=== PATIENT | female | born 1970 | race Caucasian/White ===

== ENCOUNTER 2018-01-29 22:35 | Inpatient (IN) | payer OTHER ==
[2018-01-29] MEDS ORDERED: NORMAL SALINE 1000 ML 1,000 ML IV ONE ×2 (22:42→23:28)
--- NOTE | 2018-01-29 22:49 | ER Document Report ---
ED General - General Stated Complaint: ALTERTED MENTAL STATUS Time Seen by Provider: 01/29/18 22:41 Notes: Patient is a 47-year-old female who is brought in by paramedics due to altered mental status. It apparently began tonight. Paramedics were called by the . Early in the evening she started to feel more somnolent. waited to see if she is improving then apparently her breathing started to worsen therefore called the embolus. When Paramedics arrived her systolic blood pressure was in the 80s. This started a fluid bolus. She is tachycardic. She has a history of diabetes. She is also on antidepressant medications. She is also on antihypertensive medications. The patient herself will only answer a few questions yes or no. She is obviously altered and does not answer most questions appropriately. I asked if she has pain she will say "no". I asked her if she took more of her medications and she supposed to she says "no". I cannot get any further history from her at this time. Patient's current medications are metformin, lisinopril, hydrochlorothiazide, Savella, duloxetine, Neurontin, and Nucynta. TRAVEL OUTSIDE OF THE [place] IN LAST 30 DAYS: No - Related Data Allergies/Adverse Reactions: acetaminophen [From NyQuil] Allergy (Verified 05/08/15 21:11) heart races dextromethorphan HBr [From NyQuil] Allergy (Verified 05/08/15 21:11) heart races doxylamine [From NyQuil] Allergy (Verified 05/08/15 21:11) heart races Penicillins Allergy (Verified 05/08/15 21:11) Hives pseudoephedrine HCl [From NyQuil] Allergy (Verified 05/08/15 21:11) heart races Past Medical History - Social History Smoking Status: Unknown if Ever Smoked Frequency of alcohol use: unknown Drug Abuse: Other - uknown Family History: Other - unknown - Past Medical History Cardiac Medical History: Reports: Hx Hypertension Endocrine Medical History: Reports: Hx Diabetes Mellitus Type 2 - borderline Renal/ Medical History: Reports: Hx Ovarian Cysts - pcos Musculoskeletal Medical History: Reports Hx Musculoskeletal Deformity - bursitits Psychiatric Medical History: Reports: Hx Anxiety, Hx Attention Deficit Hyperactivity Disorder, Hx Depression Past Surgical History: Reports: Hx Appendectomy, Hx Gynecologic Surgery - right fallopian tube, Hx Orthopedic Surgery - left hip, Hx Tonsillectomy - and adenoids - Immunizations Immunizations up to date: Yes Hx Diphtheria, Pertussis, Tetanus Vaccination: Yes Review of Systems - Review of Systems -: Yes ROS unobtainable due to patient's medical condition Physical Exam - Vital signs Vitals: Resp BP 14 128/91 H 01/29/18 22:46 01/29/18 22:46 - Notes Notes: General Appearance: Well nourished, she is somnolent but awake. She will answer hardly any questions. Is obvious and confused. She is on well- appearing. Vitals: reviewed, See vital signs table. Head: no swelling or tenderness to the head Eyes: PERRL, EOMI, Conjuctiva clear Mouth: No decreasd moisture Throat: No tonsillar inflammation, No airway obstruction, No lymphadenopathy Neck: Supple, no neck tenderness, No thyromegaly Lungs: No wheezing, No rales, No rhonci, No accessory muscle use, good air exchange bilaterally. Heart: Cardiac rate, Regular rythm, No murmur, no rub Abdomen: Normal BS, soft, No rigidity, No abdominal tenderness, No guarding, no rebound, no abdominal masses, no organomegaly Extremities: , good pulses in all extremities, no swelling or tenderness in the extremities, 1+ bilateral lower extremity edema. Skin: warm, dry, appropriate color, no rash Neuro: Patient will occasionally mumble yes or no. She most questions are asked her she does not answer. She does move all 4 extremities on her own. She does continue to have a tremor in her lower extremities. She is awake but somnolent. Full neuro exam is difficult to obtain due to patient's altered mental status and difficulty following instructions at this time. Course - Re-evaluation Re-evalutation: 01/29/18 23:02 Patient's is arrived. He tells me that around 4 PM she is feeling a bit tired today both took a nap. He woke up around 8:30pm and noticed that she was very confused and altered and was not responding appropriately to him and that is when he called the ambulance. He said she has not had fevers or recent infections. He says that he himself is on chronic pain medicine use is a disabled . He says she does manage his meds. He says she has never taken his opiate medicines in the past. She is on Nucynta for pain control and he says that she has been out for a week but is been doing okay despite that. Does not suspect that she took any of his medicines. She says he says that she does not drink or do drugs. He is unsure what could be causing her symptoms today. 01/29/18 23:27 Patient is so much more awake and alert. She now admits to taking some of her 's morphine and OxyContin. She still has some hypertension. She still is tachycardic with little bit of a tremor. Suspect there is possibly she could have taken something else as well being that the opiate overdose does not explain her tachycardia and tremor that she has. 01/30/18 02:22 She continued to have recurrent bouts of hypotension despite multiple fluid boluses. Therefore placed central line in the left femoral vein. Did start patient dopamine. Blood pressures improved. I did speak with the hospitalist, Dr. Jacobo about admission. He agrees to accept the patient for admission but request that we switch dopamine to Jaydon-Synephrine because of her tachycardia. She does have acute renal failure. She does have metabolic acidosis. I strongly suspect that there is more to the store than just an opiate overdose. I suspect she may have overdosed on some of her other medications. When asked about overdosing on the medications the patient's will not really talk to me and becomes somewhat upset and does not want to answer any further questions. He does not make sense that this is an opiate overdose when she has tachycardia and has had some tremors. Mental status has become more more lucid since she has been here. I do not suspect infection. She has not had any fever. Her white count is 11.2. Her mental status has improved since she has been here. Her urinalysis only shows small amount of white blood cells. Is not consistent with that of a overt urinary tract infection. Chest x-ray does not show evidence of pneumonia. At this time we will continue supportive care. Patient will be admitted to the hospital. The line was placed in the femoral vein because when I ultrasound and looked at her jugular veins she did not have collapsible jugular veins and they were of a small diameter. Dictation of this chart was performed using voice recognition software; therefore, there may be some unintended grammatical errors. 01/30/18 02:23 01/30/18 02:25 - Vital Signs Vital signs: Temp Pulse Resp BP Pulse Ox 120 H 11 L 100/41 L 92 01/30/18 03:00 01/30/18 04:12 01/30/18 04:12 01/30/18 04:12 - Laboratory Result Diagrams: 01/29/18 22:52 01/29/18 22:52 Laboratory results interpreted by me: 01/29/18 01/29/18 01/29/18 22:21 22:52 22:52 WBC 11.2 H RBC 3.62 L Hgb 11.5 L Hct 34.5 L Seg Neutrophils % 86.2 H Lymphocytes % 8.5 L Absolute Neutrophils 9.7 H VBG pH VBG HCO3 Potassium 5.4 H Carbon Dioxide 16 L BUN 69 H Creatinine 3.42 H Est GFR ( Amer) 17 L Est GFR (Non-Af Amer) 14 L Glucose 111 H Calcium 8.1 L Creatine Kinase Urine Protein 30 H Urine Blood LARGE H Urine Urobilinogen 2.0 H Ur Leukocyte Esterase TRACE H Salicylates < 1.0 L Acetaminophen < 10 L 01/29/18 01/29/18 22:52 22:52 WBC RBC Hgb Hct Seg Neutrophils % Lymphocytes % Absolute Neutrophils VBG pH 7.12 L* VBG HCO3 17.4 L Potassium Carbon Dioxide BUN Creatinine Est GFR ( Amer) Est GFR (Non-Af Amer) Glucose Calcium Creatine Kinase 639 H Urine Protein Urine Blood Urine Urobilinogen Ur Leukocyte Esterase Salicylates Acetaminophen Procedures - Central Line Left Femoral Consent obtained: Yes Central line pre-insertion: Sterile PPE donned, Chloraprep applied, Sterile drapes applied Central line lumen type: Triple Anesthetic type: 1% Lidocaine mL's of anesthesia: 4 Ultrasound guided: Yes CM at insertion site: 20 Line secured with sutures: Yes Central line post-insertion: Blood return from lumens, Biopatch applied, Sutured , Sterile dressing applied Number of attempts: 1 Complications: No Critical Care Note - Critical Care Note Total time excluding time spent on procedures (mins): 70 Comments: Critical care time for this patient not including time spent on procedures approximately 70 minutes due to frequent re-evaluations and management for hypotension, hypoxemia, and altered mental status.
[2018-01-29 23:21] LABS: VENOUS BLOOD BASE EXCESS -11.7 mmol/L; VENOUS BLOOD HCO3 17.4 mmol/L (20-32); VENOUS BLOOD PCO2 54.2 mmHg (35-63); VENOUS BLOOD PH 7.12 (7.30-7.42)
--- NOTE | 2018-01-29 23:23 | EKG REPORT ---
SEVERITY:- OTHERWISE NORMAL ECG - SINUS TACHYCARDIA : Confirmed by: Gwen Rodriguez MD 29-Jan-2018 23:23:16
[2018-01-29 23:24] LABS: ABSOLUTE MONOCYTES (AUTO) 0.6 10^3/uL (0.1-1.4); ABSOLUTE NEUT (AUTO) 9.7 10^3/uL (1.7-8.2); BASOPHILS % (AUTO) 0.2 % (0-2); EOSINOPHILS % (AUTO) 0.1 % (0-6); HEMATOCRIT 34.5 % (36.0-47.0); HEMOGLOBIN 11.5 g/dL (12.0-15.5); LYMPHOCYTES % (AUTO) 8.5 % (13-45); MEAN CORPUSCULAR HEMOGLOBIN 31.9 pg (27.0-33.4); MEAN CORPUSCULAR HGB CONC 33.4 g/dL (32.0-36.0); MEAN CORPUSCULAR VOLUME 96 fl (80-97); PLATELET COUNT 268 10^3/uL (150-450); RED BLOOD COUNT 3.62 10^6/uL (3.72-5.28); RED CELL DISTRIBUTION WIDTH 13.9 % (11.5-14.0); SEGMENTED NEUTROPHILS % (AUTO) 86.2 % (42-78); TOTAL CELLS COUNTED % (AUTO) 100 %; WHITE BLOOD COUNT 11.2 10^3/uL (4.0-10.5)
[2018-01-29 23:29] LABS: INTERNATIONAL RATION (INR) 1.05; PROTHROMBIN TIME 14.2 SEC (11.4-15.4)
[2018-01-29] MEDS ORDERED: NALOXONE HCL INJ/PF 0.4 MG/1 ML SDV IV ONE (23:32)
[2018-01-29 23:33] LABS: AMORPHOUS SEDIMENT,URINE TRACE /HPF; APPEARANCE,URINE CLOUDY; BILIRUBIN,URINE NEGATIVE (NEGATIVE); COLOR,URINE YELLOW; GLUCOSE, URINE NEGATIVE (NEGATIVE); KETONES,URINE NEGATIVE (NEGATIVE); LEUKOCYTE ESTERASE,URINE TRACE (NEGATIVE); NITRITE,URINE NEGATIVE (NEGATIVE); PROTEIN,URINE 30 mg/dL (NEGATIVE); URINE SPECIFIC GRAVITY 1.019
[2018-01-29 23:34] LABS: ALANINE AMINOTRANSFERASE 39 U/L (9-52); ALBUMIN 3.6 g/dL (3.5-5.0); ALKALINE PHOSPHATASE 67 U/L (38-126); ANION GAP 16 (5-19); ASPARTATE AMINO TRANSFERASE 22 U/L (14-36); BILIRUBIN,DIRECT 0.3 mg/dL (0.0-0.4); BILIRUBIN,TOTAL 0.3 mg/dL (0.2-1.3); BLOOD UREA NITROGEN 69 mg/dL (7-20); CALCIUM 8.1 mg/dL (8.4-10.2); CARBON DIOXIDE 16 mmol/L (22-30); CHLORIDE 107 mmol/L (98-107); GLUCOSE 111 mg/dL (75-110); POTASSIUM 5.4 mmol/L (3.6-5.0); SODIUM 138.6 mmol/L (137-145); TOTAL PROTEIN 6.3 g/dL (6.3-8.2)
[2018-01-29 23:37] LABS: ACETAMINOPHEN < 10 ug/mL (10-30); ALCOHOL < 10 mg/dL (NONE DETECTED); SALICYLATE < 1.0 mg/dL (2.0-20.0)
[2018-01-29 23:45] LABS: URINE AMPHETAMINES SCREEN NEGATIVE; URINE BARBITURATES SCREEN NEGATIVE; URINE BENZODIAZEPINES SCREEN NEGATIVE; URINE COCAINE SCREEN NEGATIVE; URINE MARIJUANA (THC) SCREEN NEGATIVE; URINE METHADONE SCREEN NEGATIVE; URINE PHENCYCLIDINE SCREEN NEGATIVE
[2018-01-29] MEDS ORDERED: RINGERS SOLUTION,LACTATED 1,000 ML IV ONE (23:56)
--- NOTE | 2018-01-30 00:46 | RADIOLOGY REPORT (SQ) ---
EXAM DESCRIPTION: XR CHEST 1 VIEW COMPLETED DATE/TME: 01/29/2018 22:41 CLINICAL HISTORY: altered mental status COMPARISON: 06/13/2013 FINDINGS: Single frontal view of the chest. The cardiomediastinal silhouette has normal size and contour. No consolidation, pneumothorax, or pleural effusion. No displaced rib fractures identified. Leads overlie the chest. Low lung volumes. Upper abdominal soft tissues are unremarkable. IMPRESSION: 1. No acute pulmonary process identified.
--- NOTE | 2018-01-30 00:53 | RADIOLOGY REPORT (SQ) ---
EXAM DESCRIPTION: CT HEAD WITHOUT IV CONTRAST COMPLETED DATE/TME: 01/29/2018 22:41 CLINICAL HISTORY: altered mental status COMPARISON: None available TECHNIQUE: Axial CT of the head obtained from the skull apex to the skull base without contrast. FINDINGS: No acute intracranial hemorrhage identified. No mass, mass effect, shift of the midline, abnormal extra-axial fluid collection or CT evidence of acute ischemic change identified. The ventricular system is unremarkable. No acute abnormalities of the supratentorial white matter, basal ganglia, cerebellum, or brainstem. The visualized paranasal sinuses and the mastoids are clear. No skull fracture identified. Visualized orbits and globes are unremarkable. DLP:1017.17 mGy-cm IMPRESSION: 1. No acute intracranial abnormality identified. This exam was performed according to our departmental dose-optimization program, which includes automated exposure control, adjustment of the mA and/or kV according to patient size and/or use of iterative reconstruction technique.
[2018-01-30] MEDS ORDERED: DOPAMINE HCL/DEXTROSE 5%-WATER 800 MG/250 ML RTUINJ IV PRN (01:19)
[2018-01-30] MEDS ORDERED: IPRATROPIUM/ALBUTEROL 0.5-2.5 MG/3 ML AMPUL NEB PRN ×2 (02:22)
[2018-01-30] MEDS ORDERED: MAG HYDROX/AL HYDROX/SIMETH SUSP 30 ML UDCUP PO PRN (02:22)
[2018-01-30] MEDS ORDERED: NORMAL SALINE 1000 ML 1,000 ML IV SCH (02:30)
[2018-01-30] MEDS ORDERED: PHENYLEPHRINE HCL INJ/PF 10 MG/1 ML SDV ONE ×2 (03:29→04:55)
[2018-01-30] MEDS: DEXTROSE 5%-WATER 250 ML with PHENYLEPHRINE HCL 40 MG IV PRN ×4 (03:46→06:34)
[2018-01-30 05:13] LABS: ARTERIAL BLOOD O2 SATURATION 94.2 % (94-98); ARTERIAL BLOOD PCO2 49.8 mmHg (35-45); ARTERIAL BLOOD PO2 97.5 mmHg (80-100); ARTERIAL BLOOD TOTAL CO2 15.5 mmol/L (21-25)
[2018-01-30 05:15] LABS: ARTERIAL BLOOD FIO2 4L
[2018-01-30 05:17] LABS: ARTERIAL BLOOD PH 7.07 (7.35-7.45)
[2018-01-30] MEDS ORDERED: SODIUM BICARBONATE 8.4% INJ 50 MEQ/50 ML DISP.SYRIN ONE ×2 (05:20→12:58)
[2018-01-30] MEDS ORDERED: NALOXONE HCL INJ 2 MG/2 ML DISP.SYRIN ONE (05:26)
[2018-01-30] MEDS ORDERED: NALOXONE HCL INJ/PF 0.4 MG/1 ML SDV IV PRN (05:36)
[2018-01-30 05:37] LABS: ALANINE AMINOTRANSFERASE 47 U/L (9-52); ALBUMIN 3.4 g/dL (3.5-5.0); ALKALINE PHOSPHATASE 67 U/L (38-126); ANION GAP 12 (5-19); ASPARTATE AMINO TRANSFERASE 55 U/L (14-36); BILIRUBIN,DIRECT 0.4 mg/dL (0.0-0.4); BILIRUBIN,TOTAL 0.4 mg/dL (0.2-1.3); BLOOD UREA NITROGEN 63 mg/dL (7-20); CALCIUM 7.6 mg/dL (8.4-10.2); CARBON DIOXIDE 17 mmol/L (22-30); CHLORIDE 111 mmol/L (98-107); GLUCOSE 141 mg/dL (75-110); POTASSIUM 4.9 mmol/L (3.6-5.0); SODIUM 140.3 mmol/L (137-145)
[2018-01-30 05:43] LABS: CREATINE KINASE MB 54.4 ng/mL (<4.55)
[2018-01-30 05:48] LABS: TROPONIN I 0.194 ng/mL
--- NOTE | 2018-01-30 05:55 | PDOC H&P ---
History of Present Illness Admission Date/PCP: 01/30/18 03:25 Patient complains of: Altered mental status History of Present Illness: MARK LING is a 47 year old female with a past medical history of depression , hypertension, morbid obesity, diabetes and chronic pain. Patient presents with several hours of excessive drowsiness, EMS finds her apneic with systolic blood pressure 80 she is brought to the emergency room for evaluation. She is started on dopamine and an IV fluid challenge persistent hypotension. Her labs reveal acute renal failure, metabolic acidosis and rhabdomyolysis. She receives a trial of Narcan with minimal improvement she is referred to the hospitalist for admission. She is unable to provide history though her at bedside states she has had access to her own medication in addition to his which include morphine and OxyContin. She has no history of suicide ideation. Past Medical History Cardiac Medical History: Reports: Hypertension Endocrine Medical History: Reports: Diabetes Mellitus Type 2 - borderline Psychiatric Medical History: Reports: Attention Deficit Hyperactivity Disorder, Depression Past Surgical History Past Surgical History: Reports: Appendectomy, Orthopedic Surgery - left hip, Tonsillectomy - and adenoids Social History Information Source: Relative, Emergency Med Personnel, [facility] Records Lives with: Spouse/Significant other Smoking Status: Current Every Day Smoker Cigarettes Packs Per Day: 1 Frequency of Alcohol Use: None Hx Recreational Drug Use: No Drugs: None Hx Prescription Drug Abuse: No - Advance Directive Resuscitation Status: Full Code Family History Family History: Other - Unobtainable unknown Parental Family History Reviewed: No - Unobtainable Children Family History Reviewed: No - Unobtainable Sibling(s) Family History Reviewed.: No - Unobtainable Medication/Allergy Home Medications: Oxycodone HCl/Acetaminophen [Percocet 5-325 mg Tablet] 1 - 2 tab PO Q4H PRN #15 tablet 05/18/13 Duloxetine HCl 60 mg PO BID 01/30/18 Gabapentin [Gabapentin] 600 mg PO QID PRN 01/30/18 Lisinopril/Hydrochlorothiazide [Lisinopril-Hctz 20-25 mg Tab] 20 - 25 mg PO DAILY 01/30/18 Metformin HCl [Metformin HCl] 500 mg PO DAILY 01/30/18 Milnacipran HCl [Savella] 12.5 mg PO BID 01/30/18 Tapentadol HCl [Nucynta] 75 mg PO TID PRN 01/30/18 Allergies/Adverse Reactions: acetaminophen [From NyQuil] Allergy (Verified 05/08/15 21:11) heart races dextromethorphan HBr [From NyQuil] Allergy (Verified 05/08/15 21:11) heart races doxylamine [From NyQuil] Allergy (Verified 05/08/15 21:11) heart races Penicillins Allergy (Verified 05/08/15 21:11) Hives pseudoephedrine HCl [From NyQuil] Allergy (Verified 05/08/15 21:11) heart races Review of Systems ROS unobtainable: Due to mental status Physical Exam Vital Signs: Temp Pulse Resp BP Pulse Ox 99.1 F 110 H 14 129/66 H 97 01/30/18 05:02 01/30/18 05:02 01/30/18 05:02 01/30/18 05:02 01/30/18 05:02 Intake & Output 01/28/18 01/29/18 01/30/18 11:59 11:59 11:59 Weight 143.9 kg General appearance: PRESENT: disheveled, morbidly obese, severe distress Head exam: PRESENT: atraumatic, normocephalic Eye exam: PRESENT: conjunctiva pink, EOMI, PERRLA. ABSENT: scleral icterus Ear exam: PRESENT: normal external ear exam Mouth exam: PRESENT: moist, tongue midline Neck exam: ABSENT: carotid bruit, JVD, lymphadenopathy, thyromegaly Respiratory exam: PRESENT: crackles, decreased breath sounds Cardiovascular exam: PRESENT: tachycardia. ABSENT: diastolic murmur, rubs, systolic murmur Pulses: PRESENT: normal dorsalis pedis pul Vascular exam: PRESENT: normal capillary refill GI/Abdominal exam: PRESENT: normal bowel sounds, soft. ABSENT: distended, guarding, mass, organolmegaly, rebound, tenderness Rectal exam: PRESENT: deferred Extremities exam: PRESENT: +1 edema Neurological exam: PRESENT: altered, CN II-XII grossly intact. ABSENT: awake, oriented to person, oriented to place Psychiatric exam: PRESENT: unusual affect Skin exam: PRESENT: dry, intact, warm. ABSENT: cyanosis, rash Results Laboratory Results: 01/30/18 04:57 01/30/18 01/30/18 04:57 04:57 Carbonic Acid 1.50 H HCO3/H2CO3 Ratio 9:1 ABG pH 7.07 L* ABG pCO2 49.8 H ABG pO2 97.5 ABG HCO3 14.0 L ABG O2 Saturation 94.2 ABG Base Excess -16.0 FiO2 4L Sodium 140.3 Potassium 4.9 Chloride 111 H Carbon Dioxide 17 L Anion Gap 12 BUN 63 H Creatinine 2.83 H Est GFR ( Amer) 22 L Est GFR (Non-Af Amer) 18 L Glucose 141 H Calcium 7.6 L Total Bilirubin 0.4 AST 55 H ALT 47 Alkaline Phosphatase 67 Total Protein 6.0 L Albumin 3.4 L Impressions: Chest X-Ray 01/29/18 22:41 IMPRESSION: 1. No acute pulmonary process identified. Head CT 01/29/18 22:41 IMPRESSION: 1. No acute intracranial abnormality identified. This exam was performed according to our departmental dose-optimization program, which includes automated exposure control, adjustment of the mA and/or kV according to patient size and/or use of iterative reconstruction technique. Assessment & Plan - Diagnosis (1) Opiate overdose Is this a current diagnosis for this admission?: Yes Plan: Complicated by opiate access of Nucynta, OxyContin and morphine. Admitted to the ICU for supportive care, history of depression patient is on IVC papers. Mental health consulted. (2) Acute renal failure Is this a current diagnosis for this admission?: Yes Plan: Secondary to #1, avoid nephrotoxic meds and doses reevaluate chemistry (3) Metabolic acidosis Is this a current diagnosis for this admission?: Yes Plan: Secondary to #1, lactic acid unremarkable. IV fluid challenge, reevaluate ABG, D5W with 3 Amps of bicarb 2 L, reevaluate ABG (4) Hypotension Is this a current diagnosis for this admission?: Yes Plan: Secondary to #1, IV fluid challenge and pressors as needed (5) Morbid obesity Is this a current diagnosis for this admission?: Yes Plan: Morbid obesity will evaluate for metabolic cause with evaluation of thyroid function and dietitian consultation
[2018-01-30] MEDS ORDERED: NALOXONE HCL INJ 2 MG/2 ML DISP.SYRIN IV ONE (06:00)
[2018-01-30] MEDS ORDERED: DEXTROSE 5%-WATER 1000 ML 1,000 ML with SODIUM BICARBONATE 150 MEQ IV ONE ×2 (06:00)
[2018-01-30] MEDS: HEPARIN SOD (PORCINE) 5,000 UNIT/ML 1 ML SYRINGE SUBCUT SCH ×3 (06:36→21:54)
--- NOTE | 2018-01-30 07:19 | EKG REPORT ---
SEVERITY:- ABNORMAL ECG - SINUS TACHYCARDIA LEFT ATRIAL ABNORMALITY : Confirmed by: Gwen Rodriguez MD 30-Jan-2018 07:17:27
[2018-01-30 09:22] LABS: ARTERIAL BLOOD BASE EXCESS -9.7 mmol/L; ARTERIAL BLOOD FIO2 2L; ARTERIAL BLOOD H2CO3 1.43 mmol/L (1.05-1.35); ARTERIAL BLOOD HCO3 18.1 mmol/L (20-26); ARTERIAL BLOOD O2 SATURATION 96.2 % (94-98); ARTERIAL BLOOD PCO2 47.6 mmHg (35-45); ARTERIAL BLOOD PO2 101.4 mmHg (80-100); ARTERIAL BLOOD TOTAL CO2 19.5 mmol/L (21-25)
[2018-01-30] MEDS: DOCUSATE SODIUM 100 MG CAPSULE PO SCH (11:30)
[2018-01-30] MEDS: ASPIRIN 81 MG TABLET, CHEWABLE PO SCH (11:30)
[2018-01-30] MEDS ORDERED: DEXTROSE 5%-WATER 1000 ML 1,000 ML with SODIUM BICARBONATE 150 MEQ IV PRN ×2 (13:04)
[2018-01-30 14:13] LABS: CREATINE KINASE MB 39.4 ng/mL (<4.55); TROPONIN I 0.959 ng/mL
[2018-01-30] MEDS ORDERED: ACETAMINOPHEN 325 MG TABLET ONE (16:05)
[2018-01-30 16:48] LABS: ARTERIAL BLOOD BASE EXCESS -6.5 mmol/L; ARTERIAL BLOOD H2CO3 1.39 mmol/L (1.05-1.35); ARTERIAL BLOOD HCO3 20.4 mmol/L (20-26); ARTERIAL BLOOD PCO2 46.2 mmHg (35-45); ARTERIAL BLOOD PH 7.26 (7.35-7.45); ARTERIAL BLOOD TOTAL CO2 21.8 mmol/L (21-25)
[2018-01-30 16:50] LABS: ARTERIAL BLOOD FIO2 28%
[2018-01-30] MEDS: ACETAMINOPHEN 325 MG TABLET PO PRN (17:13)
[2018-01-30 17:28] LABS: ALANINE AMINOTRANSFERASE 53 U/L (9-52); ALBUMIN 3.2 g/dL (3.5-5.0); ALKALINE PHOSPHATASE 68 U/L (38-126); ANION GAP 10 (5-19); ASPARTATE AMINO TRANSFERASE 60 U/L (14-36); BILIRUBIN,DIRECT 0.2 mg/dL (0.0-0.4); BILIRUBIN,TOTAL 0.3 mg/dL (0.2-1.3); BLOOD UREA NITROGEN 45 mg/dL (7-20); CALCIUM 7.8 mg/dL (8.4-10.2); CARBON DIOXIDE 23 mmol/L (22-30); CHLORIDE 113 mmol/L (98-107); GLUCOSE 133 mg/dL (75-110); POTASSIUM 4.1 mmol/L (3.6-5.0); SODIUM 145.9 mmol/L (137-145); TOTAL PROTEIN 5.8 g/dL (6.3-8.2)
[2018-01-30 17:38] LABS: TROPONIN I 1.36 ng/mL
[2018-01-30 17:39] LABS: CREATINE KINASE 2228 U/L (30-135)
--- NOTE | 2018-01-30 17:41 | Progress Note ---
Provider Note Provider Note: The patient was admitted by my colleague, Dr. Jacobo earlier this morning. The patient was seen and examined by me. She is resting comfortably. I ordered serial troponins. They have been trending upwards without becoming positive. I have also beenfollowing her EKG which is unchanged. I believe that the elevation in troponin is due to her elevated creatinine.
[2018-01-30 20:41] LABS: CREATINE KINASE MB 26.7 ng/mL (<4.55)
[2018-01-30 20:46] LABS: TROPONIN I 1.62 ng/mL
[2018-01-30] MEDS ORDERED: HALOPERIDOL LACTATE INJ 5 MG/1 ML VIAL IV PRN (21:20)
--- NOTE | 2018-01-30 21:47 | EKG REPORT ---
SEVERITY:- ABNORMAL ECG - SINUS TACHYCARDIA PROBABLE LEFT ATRIAL ABNORMALITY NONSPECIFIC T ABNORMALITIES, LATERAL LEADS : Confirmed by: Gwen Rodriguez MD 30-Jan-2018 21:47:19
[2018-01-31] MEDS: ACETAMINOPHEN 325 MG TABLET PO PRN (00:40)
[2018-01-31 05:07] LABS: ARTERIAL BLOOD BASE EXCESS 1.5 mmol/L; ARTERIAL BLOOD H2CO3 1.47 mmol/L (1.05-1.35); ARTERIAL BLOOD HCO3 27.4 mmol/L (20-26); ARTERIAL BLOOD PCO2 48.9 mmHg (35-45); ARTERIAL BLOOD PH 7.37 (7.35-7.45); ARTERIAL BLOOD PO2 95.7 mmHg (80-100); ARTERIAL BLOOD TOTAL CO2 28.9 mmol/L (21-25)
[2018-01-31 05:11] LABS: ABSOLUTE MONOCYTES (AUTO) 0.6 10^3/uL (0.1-1.4); ABSOLUTE NEUT (AUTO) 5.7 10^3/uL (1.7-8.2); BASOPHILS % (AUTO) 0.2 % (0-2); EOSINOPHILS % (AUTO) 0.2 % (0-6); HEMATOCRIT 30.3 % (36.0-47.0); HEMOGLOBIN 10.8 g/dL (12.0-15.5); LYMPHOCYTES % (AUTO) 13.7 % (13-45); MEAN CORPUSCULAR HEMOGLOBIN 33.1 pg (27.0-33.4); MEAN CORPUSCULAR HGB CONC 35.6 g/dL (32.0-36.0); MEAN CORPUSCULAR VOLUME 93 fl (80-97); MONOCYTES % (AUTO) 8.1 % (3-13); PLATELET COUNT 194 10^3/uL (150-450); RED BLOOD COUNT 3.26 10^6/uL (3.72-5.28); RED CELL DISTRIBUTION WIDTH 13.6 % (11.5-14.0); SEGMENTED NEUTROPHILS % (AUTO) 77.8 % (42-78); TOTAL CELLS COUNTED % (AUTO) 100 %; WHITE BLOOD COUNT 7.3 10^3/uL (4.0-10.5)
[2018-01-31 05:19] LABS: ARTERIAL BLOOD FIO2 28%
[2018-01-31] MEDS: HEPARIN SOD (PORCINE) 5,000 UNIT/ML 1 ML SYRINGE SUBCUT SCH ×3 (05:28→21:59)
[2018-01-31 05:41] LABS: ANION GAP 10 (5-19)
[2018-01-31 06:55] LABS: ALANINE AMINOTRANSFERASE 50 U/L (9-52); ALBUMIN 3.2 g/dL (3.5-5.0); ALKALINE PHOSPHATASE 69 U/L (38-126); ASPARTATE AMINO TRANSFERASE 50 U/L (14-36); BILIRUBIN,DIRECT 0.3 mg/dL (0.0-0.4); BILIRUBIN,TOTAL 0.3 mg/dL (0.2-1.3); BLOOD UREA NITROGEN 29 mg/dL (7-20); CALCIUM 8.3 mg/dL (8.4-10.2); CARBON DIOXIDE 29 mmol/L (22-30); CHLORIDE 109 mmol/L (98-107); GLUCOSE 159 mg/dL (75-110); POTASSIUM 3.8 mmol/L (3.6-5.0); SODIUM 147.8 mmol/L (137-145); TOTAL PROTEIN 5.8 g/dL (6.3-8.2)
[2018-01-31] MEDS: ASPIRIN 81 MG TABLET, CHEWABLE PO SCH (10:23)
[2018-01-31] MEDS: DOCUSATE SODIUM 100 MG CAPSULE PO SCH (10:23)
--- NOTE | 2018-01-31 14:47 | PDOC PROGRESS REPORT ---
Subjective Progress Note for:: 01/31/18 Subjective:: The patient is resting comfortably. No new complaints. Reason For Visit: OVERDOSE, HYPOTENSTION, ARF, AMS Physical Exam Vital Signs: Temp Pulse Resp BP Pulse Ox 98.7 F 70 22 H 117/87 H 98 01/31/18 12:00 01/31/18 13:59 01/31/18 12:00 01/31/18 12:00 01/31/18 12:00 Intake & Output 01/30/18 01/31/18 02/01/18 06:59 06:59 06:59 Intake Total 1055 4124 Output Total 405 9379 975 Balance 650 -5255 -975 Weight 143.9 kg 144 kg General appearance: PRESENT: no acute distress, morbidly obese, well-developed Respiratory exam: PRESENT: other - No increased work of breathing.. ABSENT: rales, rhonchi, wheezes Cardiovascular exam: PRESENT: RRR. ABSENT: diastolic murmur, rubs, systolic murmur Pulses: PRESENT: normal femoral pulses, normal dorsalis pedis pul Vascular exam: PRESENT: normal capillary refill GI/Abdominal exam: PRESENT: soft, other - Bowel sounds are distant. I am unable to evaluate the abdomen for organomegaly, masses, or hernias due to the patient' s body habitus.. ABSENT: distended, guarding, rebound, tenderness Rectal exam: PRESENT: deferred Extremities exam: PRESENT: full ROM. ABSENT: calf tenderness, clubbing, pedal edema Musculoskeletal exam: PRESENT: full ROM. ABSENT: deformity, dislocation Neurological exam: PRESENT: CN II-XII grossly intact, other - The patient is resting comfortably and is somnolent.. ABSENT: motor sensory deficit Skin exam: PRESENT: dry, intact, warm. ABSENT: cyanosis, rash Results Laboratory Results: 01/31/18 05:00 01/31/18 05:00 01/30/18 01/30/18 01/31/18 16:00 16:30 05:00 WBC 7.3 RBC 3.26 L Hgb 10.8 L Hct 30.3 L MCV 93 MCH 33.1 MCHC 35.6 RDW 13.6 Plt Count 194 Seg Neutrophils % 77.8 Lymphocytes % 13.7 Monocytes % 8.1 Eosinophils % 0.2 Basophils % 0.2 Absolute Neutrophils 5.7 Absolute Lymphocytes 1.0 Absolute Monocytes 0.6 Absolute Eosinophils 0.0 Absolute Basophils 0.0 Carbonic Acid 1.39 H HCO3/H2CO3 Ratio 14:1 ABG pH 7.26 L ABG pCO2 46.2 H ABG pO2 93.0 ABG HCO3 20.4 ABG O2 Saturation 96.0 ABG Base Excess -6.5 FiO2 28% Sodium 145.9 H Potassium 4.1 Chloride 113 H Carbon Dioxide 23 Anion Gap 10 BUN 45 H Creatinine 1.32 H Est GFR ( Amer) 52 L Est GFR (Non-Af Amer) 43 L Glucose 133 H Lactic Acid Calcium 7.8 L Magnesium 2.2 Total Bilirubin 0.3 AST 60 H ALT 53 H Alkaline Phosphatase 68 Total Protein 5.8 L Albumin 3.2 L 01/31/18 01/31/18 01/31/18 05:00 05:00 05:00 WBC RBC Hgb Hct MCV MCH MCHC RDW Plt Count Seg Neutrophils % Lymphocytes % Monocytes % Eosinophils % Basophils % Absolute Neutrophils Absolute Lymphocytes Absolute Monocytes Absolute Eosinophils Absolute Basophils Carbonic Acid 1.47 H HCO3/H2CO3 Ratio 18:1 ABG pH 7.37 ABG pCO2 48.9 H ABG pO2 95.7 ABG HCO3 27.4 H ABG O2 Saturation 97.0 ABG Base Excess 1.5 FiO2 28% Sodium 147.8 H Potassium 3.8 Chloride 109 H Carbon Dioxide 29 Anion Gap 10 BUN 29 H Creatinine 0.95 Est GFR ( Amer) > 60 Est GFR (Non-Af Amer) > 60 Glucose 159 H Lactic Acid 0.7 Calcium 8.3 L Magnesium Total Bilirubin 0.3 AST 50 H ALT 50 Alkaline Phosphatase 69 Total Protein 5.8 L Albumin 3.2 L 01/30/18 01/30/18 01/30/18 04:57 04:57 13:30 Creatine Kinase 2252 H 2030 H CK-MB (CK-2) 54.40 H Troponin I 0.194 01/30/18 01/30/18 01/30/18 13:30 16:30 16:30 Creatine Kinase 2228 H CK-MB (CK-2) 39.40 H 33.00 H Troponin I 0.959 1.360 01/30/18 01/30/18 20:05 20:05 Creatine Kinase 1544 H CK-MB (CK-2) 26.70 H Troponin I 1.620 Impressions: Chest X-Ray 01/29/18 22:41 IMPRESSION: 1. No acute pulmonary process identified. Head CT 01/29/18 22:41 IMPRESSION: 1. No acute intracranial abnormality identified. This exam was performed according to our departmental dose-optimization program, which includes automated exposure control, adjustment of the mA and/or kV according to patient size and/or use of iterative reconstruction technique. Assessment & Plan - Diagnosis (1) Fever Qualifiers: Fever type: unspecified Qualified Code(s): R50.9 - Fever, unspecified Is this a current diagnosis for this admission?: Yes Plan: Unknown source for fever. Likely atelectasis or aspiration pneumonitis. Cultures are being monitored. (2) Acute renal failure Is this a current diagnosis for this admission?: Yes Plan: Resolved. (3) Hypotension Is this a current diagnosis for this admission?: Yes Plan: Resolved. Off of pressors. Continue IV fluids. (4) Metabolic acidosis Is this a current diagnosis for this admission?: Yes Plan: Resolved. (5) Morbid obesity Is this a current diagnosis for this admission?: Yes Plan: Complicates all cares. (6) Opiate overdose Is this a current diagnosis for this admission?: Yes Plan: The patient denies suicidal intent. She had run out of her own pain medications and apparently had been taking her husbands. It is likely that she inadvertently overdosed. Psychiatry has been consulted to evaluate the patient for suicidal intent. - Time Time Spent with patient: 25-34 minutes Medications reviewed and adjusted accordingly: Yes Anticipated discharge: Home - Plan Summary Plan Summary: Will transfer out of the ICU to the floor.
[2018-02-01] MEDS: HEPARIN SOD (PORCINE) 5,000 UNIT/ML 1 ML SYRINGE SUBCUT SCH ×4 (03:56→23:10)
[2018-02-01] MEDS: ASPIRIN 81 MG TABLET, CHEWABLE PO SCH (09:52)
[2018-02-01] MEDS: DOCUSATE SODIUM 100 MG CAPSULE PO SCH (09:53)
--- NOTE | 2018-02-01 17:06 | PDOC PROGRESS REPORT ---
Subjective Progress Note for:: 02/01/18 Subjective:: The patient is much more awake and alert today. She states that she in no way intended to take an overdose. She does state that she took some of her ' s pain medication which is different in type and dose from what she takes. She states that she ran out of her medication because her was taking her medication. She states that her abuses alcohol as well as other prescription medications and street drugs. Reason For Visit: OVERDOSE, HYPOTENSTION, ARF, AMS Physical Exam Vital Signs: Temp Pulse Resp BP Pulse Ox 98.3 F 78 18 139/76 H 98 02/01/18 15:17 02/01/18 15:17 02/01/18 15:17 02/01/18 15:17 02/01/18 15:17 Intake & Output 01/31/18 02/01/18 02/02/18 06:59 06:59 06:59 Intake Total 4124 Output Total 9379 1375 Balance -5255 -1375 Weight 144 kg 138.3 kg General appearance: PRESENT: no acute distress, cooperative, obese, other - Awake, alert, and oriented x 3. Respiratory exam: PRESENT: other - No increased work of breathing. No wheezes, rales, or rhonchi. No tactile fremitus. Cardiovascular exam: PRESENT: RRR. ABSENT: gallop, rubs, systolic murmur Pulses: PRESENT: normal femoral pulses, normal dorsalis pedis pul GI/Abdominal exam: PRESENT: other - Morbidly obese. I am unable to evaluate the abdomen for organomegaly, masses, or hernias. Bowel sounds are distant. Extremities exam: ABSENT: full ROM, tenderness, +1 edema Neurological exam: PRESENT: alert, altered, awake, oriented to person, oriented to place, oriented to time, oriented to situation, CN II-XII grossly intact. ABSENT: motor sensory deficit Psychiatric exam: PRESENT: appropriate affect, normal mood Skin exam: PRESENT: dry, intact, warm Results Laboratory Results: 01/31/18 05:00 01/31/18 05:00 01/30/18 16:30 Catheterized Urine Urine Culture - Final Escherichia Coli 01/30/18 01/30/18 01/30/18 04:57 04:57 13:30 Creatine Kinase 2252 H 2030 H CK-MB (CK-2) 54.40 H Troponin I 0.194 01/30/18 01/30/18 01/30/18 13:30 16:30 16:30 Creatine Kinase 2228 H CK-MB (CK-2) 39.40 H 33.00 H Troponin I 0.959 1.360 01/30/18 01/30/18 20:05 20:05 Creatine Kinase 1544 H CK-MB (CK-2) 26.70 H Troponin I 1.620 Impressions: Chest X-Ray 01/29/18 22:41 IMPRESSION: 1. No acute pulmonary process identified. Head CT 01/29/18 22:41 IMPRESSION: 1. No acute intracranial abnormality identified. This exam was performed according to our departmental dose-optimization program, which includes automated exposure control, adjustment of the mA and/or kV according to patient size and/or use of iterative reconstruction technique. Assessment & Plan - Diagnosis (1) Fever Qualifiers: Fever type: unspecified Qualified Code(s): R50.9 - Fever, unspecified Is this a current diagnosis for this admission?: Yes Plan: Resolved. (2) Acute renal failure Is this a current diagnosis for this admission?: Yes Plan: Resolved. (3) Hypotension Is this a current diagnosis for this admission?: Yes Plan: Resolved. Off of pressors. Continue IV fluids. (4) Metabolic acidosis Is this a current diagnosis for this admission?: Yes Plan: Resolved. (5) Morbid obesity Is this a current diagnosis for this admission?: Yes Plan: Complicates all cares. (6) Opiate overdose Is this a current diagnosis for this admission?: Yes Plan: The patient denies suicidal intent. She had run out of her own pain medications and apparently had been taking her husbands. It is likely that she inadvertently overdosed. Psychiatry has been consulted to evaluate the patient for suicidal intent. - Time Time Spent with patient: 35 or more minutes Medications reviewed and adjusted accordingly: Yes Anticipated discharge: Home
[2018-02-02] MEDS: ACETAMINOPHEN 325 MG TABLET PO PRN ×3 (00:21→09:43)
[2018-02-02] MEDS: DOCUSATE SODIUM 100 MG CAPSULE PO SCH (04:56)
[2018-02-02 05:07] LABS: ABSOLUTE EOSINOPHILS # (AUTO) 0.1 10^3/uL (0.0-0.6); ABSOLUTE LYMPHOCYTES (AUTO) 1.9 10^3/uL (0.5-4.7); ABSOLUTE MONOCYTES (AUTO) 0.9 10^3/uL (0.1-1.4); ABSOLUTE NEUT (AUTO) 6.8 10^3/uL (1.7-8.2); BASOPHILS % (AUTO) 0.2 % (0-2); EOSINOPHILS % (AUTO) 1.2 % (0-6); HEMATOCRIT 30.1 % (36.0-47.0); HEMOGLOBIN 10.5 g/dL (12.0-15.5); LYMPHOCYTES % (AUTO) 19.2 % (13-45); MEAN CORPUSCULAR HEMOGLOBIN 32.7 pg (27.0-33.4); MEAN CORPUSCULAR VOLUME 94 fl (80-97); MONOCYTES % (AUTO) 9.4 % (3-13); PLATELET COUNT 209 10^3/uL (150-450); RED BLOOD COUNT 3.22 10^6/uL (3.72-5.28); RED CELL DISTRIBUTION WIDTH 13.2 % (11.5-14.0); TOTAL CELLS COUNTED % (AUTO) 100 %; WHITE BLOOD COUNT 9.7 10^3/uL (4.0-10.5)
[2018-02-02 05:29] LABS: ALBUMIN 3.1 g/dL (3.5-5.0); GLUCOSE 110 mg/dL (75-110); POTASSIUM 3.2 mmol/L (3.6-5.0); TOTAL PROTEIN 5.6 g/dL (6.3-8.2)
[2018-02-02 05:31] LABS: ALANINE AMINOTRANSFERASE 33 U/L (9-52); ALKALINE PHOSPHATASE 65 U/L (38-126); ANION GAP 12 (5-19); ASPARTATE AMINO TRANSFERASE 22 U/L (14-36); BILIRUBIN,DIRECT 0.2 mg/dL (0.0-0.4); BILIRUBIN,TOTAL 0.4 mg/dL (0.2-1.3); BLOOD UREA NITROGEN 19 mg/dL (7-20); CALCIUM 8.6 mg/dL (8.4-10.2); CARBON DIOXIDE 30 mmol/L (22-30); CHLORIDE 106 mmol/L (98-107); SODIUM 147.5 mmol/L (137-145)
[2018-02-02] MEDS: ASPIRIN 81 MG TABLET, CHEWABLE PO SCH (09:44)
[2018-02-02] MEDS ORDERED: POTASSIUM CHLORIDE 10 MEQ CAPSULE.ER PO ONE (10:00)
[2018-02-02] MEDS: HEPARIN SOD (PORCINE) 5,000 UNIT/ML 1 ML SYRINGE SUBCUT SCH ×3 (14:45→22:41)
[2018-02-02] MEDS: NUCYNTA PO PRN (22:41)
[2018-02-03] MEDS: NUCYNTA PO PRN ×2 (06:26→13:03)
[2018-02-03 07:27] LABS: ABSOLUTE EOSINOPHILS # (AUTO) 0.1 10^3/uL (0.0-0.6); ABSOLUTE LYMPHOCYTES (AUTO) 1.8 10^3/uL (0.5-4.7); ABSOLUTE MONOCYTES (AUTO) 0.8 10^3/uL (0.1-1.4); ABSOLUTE NEUT (AUTO) 7.3 10^3/uL (1.7-8.2); BASOPHILS % (AUTO) 0.3 % (0-2); EOSINOPHILS % (AUTO) 1.4 % (0-6); HEMATOCRIT 30.3 % (36.0-47.0); HEMOGLOBIN 10.5 g/dL (12.0-15.5); LYMPHOCYTES % (AUTO) 18.1 % (13-45); MEAN CORPUSCULAR HEMOGLOBIN 32.4 pg (27.0-33.4); MEAN CORPUSCULAR HGB CONC 34.6 g/dL (32.0-36.0); MEAN CORPUSCULAR VOLUME 94 fl (80-97); MONOCYTES % (AUTO) 8.4 % (3-13); PLATELET COUNT 207 10^3/uL (150-450); RED BLOOD COUNT 3.24 10^6/uL (3.72-5.28); RED CELL DISTRIBUTION WIDTH 13.2 % (11.5-14.0); SEGMENTED NEUTROPHILS % (AUTO) 71.8 % (42-78); TOTAL CELLS COUNTED % (AUTO) 100 %; WHITE BLOOD COUNT 10.1 10^3/uL (4.0-10.5)
[2018-02-03 07:42] LABS: ANION GAP 10 (5-19); BLOOD UREA NITROGEN 17 mg/dL (7-20); CALCIUM 8.6 mg/dL (8.4-10.2); CARBON DIOXIDE 28 mmol/L (22-30); CHLORIDE 107 mmol/L (98-107); GLUCOSE 111 mg/dL (75-110); POTASSIUM 3.4 mmol/L (3.6-5.0); SODIUM 145.4 mmol/L (137-145)
[2018-02-03] MEDS ORDERED: POTASSIUM CHLORIDE 10 MEQ CAPSULE.ER PO ONE (08:41)
[2018-02-03] MEDS: ASPIRIN 81 MG TABLET, CHEWABLE PO SCH (09:22)
[2018-02-03] MEDS: HEPARIN SOD (PORCINE) 5,000 UNIT/ML 1 ML SYRINGE SUBCUT SCH (13:40)
[2018-02-03 14:08] VITALS: BP 135/86
--- NOTE | 2018-02-03 14:10 | PDOC PROGRESS REPORT ---
Subjective Progress Note for:: 02/02/18 Subjective:: The patient is awake and alert today. She is complaining of diarrhea. Reason For Visit: OVERDOSE, HYPOTENSTION, ARF, AMS Physical Exam Vital Signs: Temp Pulse Resp BP Pulse Ox 98.1 F 75 16 123/78 98 02/03/18 11:50 02/03/18 11:50 02/03/18 11:50 02/03/18 11:50 02/03/18 11:50 Intake & Output 02/02/18 02/03/18 02/04/18 06:59 06:59 06:59 Intake Total 1606 1993 Balance 1606 1993 Weight 139.3 kg 132.9 kg General appearance: PRESENT: no acute distress, obese Respiratory exam: PRESENT: other - No increased work of breathing. No wheezes, rales, or rhonchi. No tactile fremitus. Cardiovascular exam: PRESENT: RRR, other - No lateral PMI. No thrills.. ABSENT : gallop, rubs, systolic murmur Pulses: PRESENT: normal femoral pulses, normal dorsalis pedis pul GI/Abdominal exam: PRESENT: soft, other - Abdomen is obese. I am unable to evaluate the abdomen for organomegaly, masses, or hernias. Bowel sounds are distant.. ABSENT: distended, tenderness Musculoskeletal exam: PRESENT: full ROM. ABSENT: deformity, tenderness Neurological exam: PRESENT: alert, awake, oriented to person, oriented to place , oriented to time, CN II-XII grossly intact. ABSENT: motor sensory deficit Psychiatric exam: PRESENT: appropriate affect, normal mood Skin exam: PRESENT: dry, intact, warm Results Laboratory Results: 02/03/18 06:15 02/03/18 06:15 02/02/18 02/03/18 02/03/18 20:50 06:15 06:15 WBC 10.1 RBC 3.24 L Hgb 10.5 L Hct 30.3 L MCV 94 MCH 32.4 MCHC 34.6 RDW 13.2 Plt Count 207 Seg Neutrophils % 71.8 Lymphocytes % 18.1 Monocytes % 8.4 Eosinophils % 1.4 Basophils % 0.3 Absolute Neutrophils 7.3 Absolute Lymphocytes 1.8 Absolute Monocytes 0.8 Absolute Eosinophils 0.1 Absolute Basophils 0.0 Sodium 145.4 H Potassium 3.4 L Chloride 107 Carbon Dioxide 28 Anion Gap 10 BUN 17 Creatinine 0.70 Est GFR ( Amer) > 60 Est GFR (Non-Af Amer) > 60 Glucose 111 H Calcium 8.6 Magnesium 1.9 Stool for White Cells NO WBCs SEEN 01/30/18 01/30/18 01/30/18 04:57 04:57 13:30 Creatine Kinase 2252 H 2030 H CK-MB (CK-2) 54.40 H Troponin I 0.194 01/30/18 01/30/18 01/30/18 13:30 16:30 16:30 Creatine Kinase 2228 H CK-MB (CK-2) 39.40 H 33.00 H Troponin I 0.959 1.360 01/30/18 01/30/18 20:05 20:05 Creatine Kinase 1544 H CK-MB (CK-2) 26.70 H Troponin I 1.620 Impressions: Chest X-Ray 01/29/18 22:41 IMPRESSION: 1. No acute pulmonary process identified. Head CT 01/29/18 22:41 IMPRESSION: 1. No acute intracranial abnormality identified. This exam was performed according to our departmental dose-optimization program, which includes automated exposure control, adjustment of the mA and/or kV according to patient size and/or use of iterative reconstruction technique. Assessment & Plan - Diagnosis (1) Fever Qualifiers: Fever type: unspecified Qualified Code(s): R50.9 - Fever, unspecified Is this a current diagnosis for this admission?: Yes Plan: Resolved, and most likely due to aspiration event related to overdose. (2) Acute renal failure Is this a current diagnosis for this admission?: Yes Plan: Resolved. (3) Hypotension Is this a current diagnosis for this admission?: Yes Plan: Resolved. (4) Metabolic acidosis Is this a current diagnosis for this admission?: Yes Plan: Resolved. (5) Morbid obesity Is this a current diagnosis for this admission?: Yes Plan: Complicates all cares. (6) Opiate overdose Is this a current diagnosis for this admission?: Yes Plan: The patient denies suicidal intent. She states that she took her husbands medications because she ran out of hers, because he was taking her medications. She asserts that her abuses alcohol, prescription medications, and street. Drugs. Nursing caring for her advises me that the says the same thing about her. (7) Diarrhea Qualifiers: Diarrhea type: unspecified type Qualified Code(s): R19.7 - Diarrhea, unspecified Is this a current diagnosis for this admission?: Yes Plan: Will check stool studies. (8) Hypokalemia Is this a current diagnosis for this admission?: Yes Plan: Supplement and monitor. - Time Time Spent with patient: 25-34 minutes Anticipated discharge: Home Within: within 24 hours
--- NOTE | 2018-02-03 14:24 | PDOC DISCHARGE SUMMARY ---
General - Admit/Disc Date/PCP Admission Date/Primary Care Provider: 01/30/18 03:25 Discharge Date: 02/03/18 - Discharge Diagnosis (1) Fever Is this a current diagnosis for this admission?: Yes (2) Acute renal failure Is this a current diagnosis for this admission?: Yes (3) Hypotension Is this a current diagnosis for this admission?: Yes (4) Metabolic acidosis Is this a current diagnosis for this admission?: Yes (5) Morbid obesity Is this a current diagnosis for this admission?: Yes (6) Opiate overdose Is this a current diagnosis for this admission?: Yes (7) Diarrhea Is this a current diagnosis for this admission?: Yes (8) Hypokalemia Is this a current diagnosis for this admission?: Yes - Additional Information Resuscitation Status: Full Code Discharge Diet: As Tolerated Discharge Activity: Activity As Tolerated Home Medications: Lisinopril/Hydrochlorothiazide [Lisinopril-Hctz 20-25 mg Tab] 1 each PO DAILY Metformin HCl [Glucophage] 500 mg PO [id number] 01/30/18 Tapentadol HCl [Nucynta] 75 mg PO TIDP PRN 01/30/18 History of Present Illness History of Present Illness: MARK GOODSON is a 47 year old female was admitted through the ED after being found at home with excessive sleepiness and apnea witnessed by EMS. Once in the ED she was found to be hypotensive, in FROILAN and rhabdomyolysis with metabolic acidosis. She was admitted and mental health was consulted to evaluate the patient for suicidality. She was admitted on suicide precautions. She was given narcan and IV fluids. She was given supportive care. Her mental status improved. She was judged by mental health to be appropriate for discharge to home. The patient had some diarrhea. Stool studies have been negative and her diarrhea has stopped. Her electrolytes have been followed and corrected as have her glucoses. The patient asserts that she did not intentionally over dose on her pain medications. She states that she took her husbands pain medications, because she was out of hers. She states that her takes her pain medications and so she runs out early, so she took some of his. She asserts that the also abuses alcohol, prescription pain medications, and street drugs that he snorts. The patient's is also inpatient and nursing advised me that the is saying the same thing about Ms Mark Goodson. It is interesting that when the patient wanted her home medications resumed and she found that Nucynta was not available here, she was able to produced bottles of both her long acting and immediate release Nucynta. This is the very same medication that she stated that she ran out of because her was taking her medications. I have discharged her with the instruction to discontinue the extended release Nucynta. Hospital Course Hospital Course: MARK GOODSON is a 47 year old female was admitted through the ED after being found at home with excessive sleepiness and apnea witnessed by EMS. Once in the ED she was found to be hypotensive, in FROILAN and rhabdomyolysis with metabolic acidosis. She was admitted and mental health was consulted to evaluate the patient for suicidality. She was admitted on suicide precautions. She was given narcan and IV fluids. She was given supportive care. Her mental status improved. She was judged by mental health to be appropriate for discharge to home. The patient had some diarrhea. Stool studies have been negative and her diarrhea has stopped. Her electrolytes have been followed and corrected as have her glucoses. The patient asserts that she did not intentionally over dose on her pain medications. She states that she took her husbands pain medications, because she was out of hers. She states that her takes her pain medications and so she runs out early, so she took some of his. She asserts that the also abuses alcohol, prescription pain medications, and street drugs that he snorts. The patient's is also inpatient and nursing advised me that the is saying the same thing about Ms Mark Goodson. It is interesting that when the patient wanted her home medications resumed and she found that Nucynta was not available here, she was able to produced bottles of both her long acting and immediate release Nucynta. This is the very same medication that she stated that she ran out of because her was taking her medications. I have discharged her with the instruction to discontinue the extended release Nucynta. Physical Exam Vital Signs: Temp Pulse Resp BP Pulse Ox 98.1 F 75 16 135/86 H 98 02/03/18 14:06 02/03/18 14:06 02/03/18 14:06 02/03/18 14:06 02/03/18 14:06 Intake & Output 02/02/18 02/03/18 02/04/18 06:59 06:59 06:59 Intake Total 1606 1993 Balance 1606 1993 Weight 139.3 kg 132.9 kg General appearance: PRESENT: no acute distress, morbidly obese Respiratory exam: PRESENT: other - No increased work of breathing.. ABSENT: rales, rhonchi, wheezes Cardiovascular exam: PRESENT: RRR. ABSENT: gallop, rubs, systolic murmur Pulses: PRESENT: normal femoral pulses, normal dorsalis pedis pul GI/Abdominal exam: PRESENT: soft, other - Obese. I am unabel to evaluate that abdomen for organomegaly, masses, or hernias secondary to the patient's body habitus. Bowel sounds are distant.. ABSENT: distended, tenderness Extremities exam: ABSENT: clubbing, tenderness, +1 edema Neurological exam: PRESENT: alert, awake, oriented to person, oriented to place , oriented to time, CN II-XII grossly intact. ABSENT: motor sensory deficit Skin exam: PRESENT: dry, intact, warm Results Laboratory Results: 02/03/18 06:15 02/03/18 06:15 02/02/18 02/03/18 02/03/18 20:50 06:15 06:15 WBC 10.1 RBC 3.24 L Hgb 10.5 L Hct 30.3 L MCV 94 MCH 32.4 MCHC 34.6 RDW 13.2 Plt Count 207 Seg Neutrophils % 71.8 Lymphocytes % 18.1 Monocytes % 8.4 Eosinophils % 1.4 Basophils % 0.3 Absolute Neutrophils 7.3 Absolute Lymphocytes 1.8 Absolute Monocytes 0.8 Absolute Eosinophils 0.1 Absolute Basophils 0.0 Sodium 145.4 H Potassium 3.4 L Chloride 107 Carbon Dioxide 28 Anion Gap 10 BUN 17 Creatinine 0.70 Est GFR ( Amer) > 60 Est GFR (Non-Af Amer) > 60 Glucose 111 H Calcium 8.6 Magnesium 1.9 Stool for White Cells NO WBCs SEEN 01/30/18 01/30/18 01/30/18 04:57 04:57 13:30 Creatine Kinase 2252 H 2030 H CK-MB (CK-2) 54.40 H Troponin I 0.194 01/30/18 01/30/18 01/30/18 13:30 16:30 16:30 Creatine Kinase 2228 H CK-MB (CK-2) 39.40 H 33.00 H Troponin I 0.959 1.360 01/30/18 01/30/18 20:05 20:05 Creatine Kinase 1544 H CK-MB (CK-2) 26.70 H Troponin I 1.620 Impressions: Chest X-Ray 01/29/18 22:41 IMPRESSION: 1. No acute pulmonary process identified. Head CT 01/29/18 22:41 IMPRESSION: 1. No acute intracranial abnormality identified. This exam was performed according to our departmental dose-optimization program, which includes automated exposure control, adjustment of the mA and/or kV according to patient size and/or use of iterative reconstruction technique. Qualifiers - * PATIENT BEING DISCHARGED WITH ANY OF THE FOLLOWING DIAGNOSIS: No
== END 2018-02-03 14:22 | disposition home or self-care (01) | DRG 918 ==
LOC: ER 22:35 → EH 01-30 03:25 → ICU 01-30 04:36 → 5 01-31 11:34
PROVIDERS: ADMIT Internal Medicine; ATTEND Internal Medicine
PROC: 06HY33Z Insertion of Infusion Device into Lower Vein, Percutaneous Approach (ICD-10-PCS; principal; 2018-01-30)
PROC: 3E0F73Z Introduction of Anti-inflammatory into Respiratory Tract, Via Natural or Artificial Opening (ICD-10-PCS; 2018-01-30)
PROC: 5A09457 Assistance with Respiratory Ventilation, 24-96 Consecutive Hours, Continuous Positive Airway Pressure (ICD-10-PCS; 2018-01-30)
DX: T40.601A Poisoning by unspecified narcotics, accidental (unintentional), initial encounter (principal); N17.9 Acute kidney failure, unspecified; E87.2 Acidosis; Z68.42 Body mass index [BMI] 45.0-49.9, adult; M62.82 Rhabdomyolysis; I95.9 Hypotension, unspecified; E66.01 Morbid (severe) obesity due to excess calories; R19.7 Diarrhea, unspecified; E87.6 Hypokalemia; F32.9 Major depressive disorder, single episode, unspecified; I10 Essential (primary) hypertension; B96.20 Unspecified Escherichia coli [E. coli] as the cause of diseases classified elsewhere; E11.9 Type 2 diabetes mellitus without complications; G89.29 Other chronic pain; F90.9 Attention-deficit hyperactivity disorder, unspecified type; F17.210 Nicotine dependence, cigarettes, uncomplicated; E28.2 Polycystic ovarian syndrome; F41.9 Anxiety disorder, unspecified; Z88.6 Allergy status to analgesic agent; Z88.0 Allergy status to penicillin; Z88.8 Allergy status to other drugs, medicaments and biological substances; Z78.1 Physical restraint status
CPT/HCPCS: 36415; 51702; 70450; 71045; 80048; 80053; 80307; 81001; 82140; 82550; 82553; 82803; 83605; 83690; 83735; 84443; 84484; 84703; 85025; 85610; 85730; 87040; 87045; 87086; 87088; 87186; 87205; 87493; 89055; 93005; 93010; 94660; 96361; 96365; 96368; 96375; 99291; C1751; J1265; J1630; J1644; J2310; J2370; J3490; J7030; J7060; J7120

== ENCOUNTER 2018-02-16 03:11 | Inpatient (IN) | payer OTHER ==
[2018-02-16 04:02] LABS: APPEARANCE,URINE SLIGHTLY-CLOUDY; BILIRUBIN,URINE NEGATIVE (NEGATIVE); COLOR,URINE STRAW; GLUCOSE, URINE NEGATIVE (NEGATIVE); KETONES,URINE NEGATIVE (NEGATIVE); LEUKOCYTE ESTERASE,URINE SMALL (NEGATIVE); NITRITE,URINE NEGATIVE (NEGATIVE); PROTEIN,URINE NEGATIVE (NEGATIVE); URINE SPECIFIC GRAVITY 1.006; UROBILINOGEN,URINE NEGATIVE mg/dL (<2.0)
--- NOTE | 2018-02-16 04:05 | ER Document Report ---
ED General - General Chief Complaint: Palpitations Stated Complaint: palpitations Time Seen by Provider: 02/16/18 03:54 Notes: Patient is a 47-year-old female who comes emergency department for chief complaint of palpitations, lightheadedness, anxiety, difficulty sleeping, and shortness of breath. She states that since she was discharged from the hospital on 03 February (had been admitted for acute renal failure), she has been anxious and had difficulty returning normal. She states she is afraid it will happen again or something similar will happen again. She denies chest pain, nausea vomiting, fever or chills. She states she gets lightheaded when she stands up sometimes. She denies passing out. Past medical history of type 2 diabetes, chronic pain, and she smokes. No history of blood clot personally or in her family. TRAVEL OUTSIDE OF THE [place] IN LAST 30 DAYS: No - Related Data Allergies/Adverse Reactions: acetaminophen [From NyQuil] Allergy (Verified 02/16/18 04:26) heart races dextromethorphan HBr [From NyQuil] Allergy (Verified 02/16/18 04:26) heart races doxylamine [From NyQuil] Allergy (Verified 02/16/18 04:26) heart races morphine Allergy (Verified 02/16/18 04:26) Penicillins Allergy (Verified 02/16/18 04:26) Hives pseudoephedrine HCl [From NyQuil] Allergy (Verified 02/16/18 04:26) heart races Past Medical History - General Information source: Patient - Social History Smoking Status: Current Every Day Smoker Smoking Education Provided: Yes - <3 min Frequency of alcohol use: None Drug Abuse: None Lives with: Family Family History: Other - Unobtainable unknown - Past Medical History Cardiac Medical History: Reports: Hx Hypertension Endocrine Medical History: Reports: Hx Diabetes Mellitus Type 2 - borderline Renal/ Medical History: Reports: Hx Ovarian Cysts - pcos. Denies: Hx Peritoneal Dialysis Musculoskeletal Medical History: Reports Hx Musculoskeletal Deformity - bursitits Psychiatric Medical History: Reports: Hx Anxiety, Hx Attention Deficit Hyperactivity Disorder, Hx Depression Past Surgical History: Reports: Hx Appendectomy, Hx Gynecologic Surgery - right fallopian tube, Hx Orthopedic Surgery - left hip, Hx Tonsillectomy - and adenoids - Immunizations Immunizations up to date: Yes Hx Diphtheria, Pertussis, Tetanus Vaccination: Yes Review of Systems - Review of Systems Constitutional: No symptoms reported EENT: No symptoms reported Cardiovascular: See HPI Respiratory: See HPI Gastrointestinal: No symptoms reported Genitourinary: No symptoms reported Female Genitourinary: No symptoms reported Musculoskeletal: No symptoms reported Skin: No symptoms reported Hematologic/Lymphatic: No symptoms reported Neurological/Psychological: See HPI Physical Exam - Vital signs Vitals: Temp Pulse Resp BP Pulse Ox 98.9 F 111 H 20 136/85 H 94 02/16/18 03:32 02/16/18 03:32 02/16/18 03:32 02/16/18 03:32 02/16/18 03:32 - Notes Notes: GENERAL: Alert, appears nervous but does not appear to be in distress. HEAD: Normocephalic, atraumatic. EYES: Pupils equal, round, and reactive to light. Extraocular movements intact. ENT: Oral mucosa moist, tongue midline. NECK: Full range of motion. Supple. Trachea midline. LUNGS: Clear to auscultation bilaterally, no wheezes, rales, or rhonchi. No respiratory distress. HEART: Borderline tachycardia, normal rhythm, no murmur ABDOMEN: Soft, non-tender. Non-distended. Bowel sounds present in all 4 quadrants. EXTREMITIES: Moves all 4 extremities spontaneously. No edema, normal radial and dorsalis pedis pulses bilaterally. No cyanosis. BACK: no cervical, thoracic, lumbar midline tenderness. No saddle anesthesia, normal distal neurovascular exam. NEUROLOGICAL: Alert and oriented x3. Normal speech. [cranial nerves II through XII grossly intact]. PSYCH: Intermittently emotional and borderline tearful. Reassured easily SKIN: Warm, dry, normal turgor. No rashes or lesions noted. Course - Re-evaluation Re-evalutation: EKG shows sinus tachycardia similar to prior. No T-wave inversions or ST segment changes in consecutive leads. Chest x-ray unremarkable. CBC unremarkable. Chemistry unremarkable. Troponin negative. TSH in the normal range. D-dimer is elevated at greater than 1. Because of patient's complaints , tachycardia, elevated d-dimer, CT will be performed. This was discussed with patient. Patient requesting something for anxiety, given a half a milligram of Ativan. This worked well. Tachycardia resolved. CT showing pulmonary embolism, right-sided saddle embolus. Giving lovenox. Discussed with Dr. Jalloh. Because EKG does not show heart strain, troponin is normal, patient is not hypoxic or tachypneic and has no signs of distress, his recommendation is for patient to be admitted here for anticoagulation, echocardiogram. Will discuss with hospitalist. 02/16/18 07:[address] Willson, patient will be admitted to the hospital, he will come see the patient. Patient will be admitted to the IM. Patient states agreement with this plan. - Vital Signs Vital signs: Temp Pulse Resp BP Pulse Ox 98.9 F 111 H 19 127/84 H 95 02/16/18 03:32 02/16/18 03:32 02/16/18 07:01 02/16/18 07:01 02/16/18 07:01 - Laboratory Result Diagrams: 02/16/18 04:04 02/16/18 04:04 Laboratory results interpreted by me: 02/16/18 02/16/18 02/16/18 03:26 04:04 04:04 D-Dimer 1.13 H Creatine Kinase 29 L Ur Leukocyte Esterase SMALL H Discharge - Discharge Clinical Impression: Tachycardia, Shortness of breath Pulmonary embolism Qualifiers: Pulmonary embolism type: saddle Chronicity: acute Acute cor pulmonale presence : without acute cor pulmonale Qualified Code(s): I26.92 - Saddle embolus of pulmonary artery without acute cor pulmonale Condition: Stable Disposition: ADMITTED INPATIENT Admitting Provider: Hospitalist Unit Admitted: [facility]
--- NOTE | 2018-02-16 04:19 | RADIOLOGY REPORT (SQ) ---
EXAM DESCRIPTION: XR CHEST 1 VIEW COMPLETED DATE/TME: 02/16/2018 04:02 CLINICAL HISTORY: 47 years Female, shortness of breath COMPARISON: 7.14.18 NUMBER OF VIEWS/TECHNIQUE: 1/AP FINDINGS: Adequate lung volume, clear parenchyma, normal cardiac silhouette, and intact bony thorax. IMPRESSION: No acute cardiopulmonary findings.
[2018-02-16 04:26] LABS: ABSOLUTE BASOPHILS # (AUTO) 0.1 10^3/uL (0.0-0.2); ABSOLUTE EOSINOPHILS # (AUTO) 0.1 10^3/uL (0.0-0.6); ABSOLUTE LYMPHOCYTES (AUTO) 2.4 10^3/uL (0.5-4.7); ABSOLUTE MONOCYTES (AUTO) 0.6 10^3/uL (0.1-1.4); ABSOLUTE NEUT (AUTO) 6.3 10^3/uL (1.7-8.2); BASOPHILS % (AUTO) 0.7 % (0-2); EOSINOPHILS % (AUTO) 1.4 % (0-6); HEMATOCRIT 36.3 % (36.0-47.0); HEMOGLOBIN 12.6 g/dL (12.0-15.5); LYMPHOCYTES % (AUTO) 25.6 % (13-45); MEAN CORPUSCULAR HEMOGLOBIN 32.4 pg (27.0-33.4); MEAN CORPUSCULAR HGB CONC 34.7 g/dL (32.0-36.0); MEAN CORPUSCULAR VOLUME 93 fl (80-97); MONOCYTES % (AUTO) 6.4 % (3-13); PLATELET COUNT 321 10^3/uL (150-450); RED CELL DISTRIBUTION WIDTH 13.8 % (11.5-14.0); SEGMENTED NEUTROPHILS % (AUTO) 65.9 % (42-78); TOTAL CELLS COUNTED % (AUTO) 100 %; WHITE BLOOD COUNT 9.6 10^3/uL (4.0-10.5)
[2018-02-16 04:50] LABS: ALANINE AMINOTRANSFERASE 30 U/L (9-52); ALBUMIN 3.8 g/dL (3.5-5.0); ALKALINE PHOSPHATASE 82 U/L (38-126); ANION GAP 11 (5-19); ASPARTATE AMINO TRANSFERASE 14 U/L (14-36); BILIRUBIN,DIRECT 0.3 mg/dL (0.0-0.4); BILIRUBIN,TOTAL 0.3 mg/dL (0.2-1.3); BLOOD UREA NITROGEN 18 mg/dL (7-20); CALCIUM 9.6 mg/dL (8.4-10.2); CARBON DIOXIDE 25 mmol/L (22-30); CHLORIDE 106 mmol/L (98-107); CREATINE KINASE 29 U/L (30-135); GLUCOSE 107 mg/dL (75-110); POTASSIUM 3.9 mmol/L (3.6-5.0); SODIUM 141.6 mmol/L (137-145); TOTAL PROTEIN 6.6 g/dL (6.3-8.2)
[2018-02-16] MEDS ORDERED: LORAZEPAM INJ 2 MG/1 ML VIAL IV ONE (04:59)
--- NOTE | 2018-02-16 07:16 | RADIOLOGY REPORT (SQ) ---
EXAM DESCRIPTION: CT CHEST ANGIOGRAPHY WITHOUT THEN WITH IV CONTRAST COMPLETED DATE/TME: 02/16/2018 04:43 CLINICAL HISTORY: 47 years Female, tachycardia, shortness of breath, elevated D-dimer Comparison: CR, same day. Technique: IV contrast. Coronal and sagittal reformat. 3d reconstruction. This exam was performed according to our departmental dose-optimization program, which includes automated exposure control, adjustment of the mA and/or kV according to patient size and/or use of iterative reconstruction technique.[facility]: Dose Right [facility]: CareDose [facility]: Dose Right [facility]: Teradose 4D [facility]: [employer] Technology LIMITATIONS: None Findings: Elongated near occlusive, saddle pulmonary embolus of the medial and lateral segmental pulmonary arteries of the right middle lobe. No significant right ventricular strain. Clear lungs. Likely left adrenal adenomata measure 1.3 cm and 0.8 cm each. Inferior neck, axillae, mediastinum, lungs, airway, lymphatics, heart, upper abdomen, and musculoskeleton appear unremarkable. Impression: Positive for pulmonary embolus. There is a saddle embolus of the right middle lobar pulmonary arteries.
[2018-02-16] MEDS ORDERED: ONDANSETRON 4 MG TAB.RAPDIS PO PRN (07:47)
[2018-02-16] MEDS: ENOXAPARIN SODIUM INJ 150 MG/1 ML DISP.SYRIN SUBCUT SCH ×3 (07:49→21:40)
[2018-02-16] MEDS ORDERED: DEXTROSE 50%-WATER 25 GM/50 ML DISP.SYRIN IV PRN ×2 (08:01)
[2018-02-16] MEDS ORDERED: GLUCAGON,HUMAN RECOMB 1 MG INJ IM PRN (08:01)
[2018-02-16] MEDS ORDERED: INSULIN LISPRO 100 UNIT/ML 3 ML VIAL SUBCUT PRN (08:01)
[2018-02-16] MEDS ORDERED: DEXTROSE 40% GEL 15 GM TUBE PO PRN ×2 (08:01)
[2018-02-16 08:19] LABS: INTERNATIONAL RATION (INR) 0.94; PARTIAL THROMBOPLASTIN TIME 27.3 SEC (23.5-35.8)
--- NOTE | 2018-02-16 08:20 | PDOC H&P ---
History of Present Illness Admission Date/PCP: 02/16/18 07:28 History of Present Illness: MARK LING is a 47 year old female patient with past medical history of hypertension, diabetes mellitus, depression, and obesity presents with chief complaint of shortness of breath, palpitation and dizziness of 1 day duration. Patient endorses mild substernal chest pain. Her initial blood work is unremarkable except for elevated d-dimer. CTA of the chest shows done and it was positive for pulmonary embolus. There is a saddle embolus of the right middle lobe are pulmonary arteries. Of note patient discharged from this hospital on February 03 after she was treated for acute renal failure and intentional drug overdose. Patient denies any chills, fever, cough, diaphoresis , nausea, vomiting, abdominal pain, diarrhea or urinary complaints. She has dizziness but she denies any blurring of vision, seizure activity, headache or syncope. Past Medical History Cardiac Medical History: Reports: Hypertension Endocrine Medical History: Reports: Diabetes Mellitus Type 2 - borderline Psychiatric Medical History: Reports: Attention Deficit Hyperactivity Disorder, Depression Past Surgical History Past Surgical History: Reports: Appendectomy, Orthopedic Surgery - left hip, Tonsillectomy - and adenoids Social History Lives with: Family Smoking Status: Current Every Day Smoker Frequency of Alcohol Use: None Hx Recreational Drug Use: No Drugs: None Hx Prescription Drug Abuse: No - Advance Directive Resuscitation Status: Full Code Family History Family History: DM, Hypertension Parental Family History Reviewed: Yes Children Family History Reviewed: Yes Sibling(s) Family History Reviewed.: Yes Medication/Allergy Home Medications: Lisinopril/Hydrochlorothiazide [Lisinopril-Hctz 20-25 mg Tab] 1 tab PO DAILY Metformin HCl [Glucophage] 500 mg PO ACBRKFST 01/30/18 Tapentadol HCl [Nucynta] 75 mg PO TIDP PRN 01/30/18 Tapentadol HCl [Nucynta ER] 250 mg PO 02/16/18 Allergies/Adverse Reactions: acetaminophen [From NyQuil] Allergy (Verified 02/16/18 04:26) heart races dextromethorphan HBr [From NyQuil] Allergy (Verified 02/16/18 04:26) heart races doxylamine [From NyQuil] Allergy (Verified 02/16/18 04:26) heart races morphine Allergy (Verified 02/16/18 04:26) Penicillins Allergy (Verified 02/16/18 04:26) Hives pseudoephedrine HCl [From NyQuil] Allergy (Verified 02/16/18 04:26) heart races Review of Systems Constitutional: PRESENT: as per HPI Nose, Mouth, and Throat: PRESENT: as per HPI Cardiovascular: PRESENT: as per HPI Respiratory: PRESENT: as per HPI Gastrointestinal: PRESENT: as per HPI Genitourinary: PRESENT: as per HPI Musculoskeletal: PRESENT: as per HPI Neurological: PRESENT: as per HPI Physical Exam Vital Signs: Temp Pulse Resp BP Pulse Ox 98.9 F 111 H 19 127/84 H 95 02/16/18 03:32 02/16/18 03:32 02/16/18 07:01 02/16/18 07:01 02/16/18 07:01 General appearance: PRESENT: mild distress Head exam: PRESENT: atraumatic Eye exam: PRESENT: conjunctiva pink Mouth exam: PRESENT: moist Neck exam: ABSENT: carotid bruit, JVD, lymphadenopathy, thyromegaly Respiratory exam: PRESENT: clear to auscultation kimberly. ABSENT: rales, rhonchi, wheezes Cardiovascular exam: PRESENT: RRR. ABSENT: diastolic murmur, rubs, systolic murmur Pulses: PRESENT: normal dorsalis pedis pul GI/Abdominal exam: PRESENT: normal bowel sounds, soft. ABSENT: distended, guarding, mass, organolmegaly, rebound, tenderness Extremities exam: PRESENT: full ROM. ABSENT: calf tenderness, clubbing, pedal edema Neurological exam: PRESENT: alert, awake, oriented to person, oriented to place , oriented to time, oriented to situation, CN II-XII grossly intact. ABSENT: motor sensory deficit Psychiatric exam: PRESENT: normal mood Results Impressions: Chest X-Ray 02/16/18 04:02 IMPRESSION: No acute cardiopulmonary findings. Assessment & Plan - Diagnosis (1) Acute pulmonary embolism Qualifiers: Pulmonary embolism type: saddle Is this a current diagnosis for this admission?: Yes Plan: Patient has been started on Lovenox 134 mg every 12 hours I will switch her to Eliquis in the coming 48-72 hours. (2) Hypertension Qualifiers: Hypertension type: essential hypertension Qualified Code(s): I10 - Essential (primary) hypertension Is this a current diagnosis for this admission?: Yes Plan: Continue lisinopril (3) Depression Is this a current diagnosis for this admission?: Yes Plan: Continue duloxetine (4) Type 2 diabetes mellitus Is this a current diagnosis for this admission?: Yes Plan: Continue metformin 500 mg twice daily and sliding scale. (5) Obesity Is this a current diagnosis for this admission?: Yes Plan: Lifestyle modification advised
[2018-02-16] MEDS: METFORMIN HCL 500 MG TABLET PO SCH (08:28)
[2018-02-16] MEDS ORDERED: (PENDING PHARMACY ID) (Tapentadol Hcl [Nucynta] 75 MG) PO PRN (08:40)
--- NOTE | 2018-02-16 09:23 | EKG REPORT ---
SEVERITY:- BORDERLINE ECG - SINUS TACHYCARDIA PROBABLE LEFT ATRIAL ABNORMALITY : Confirmed by: Melisa Hubbard 16-Feb-2018 09:22:32
[2018-02-16] MEDS ORDERED: (PENDING PHARMACY ID) (Lisinopril/Hydrochlorothiazide [Lisinopril-Hctz 20-25 Mg Tab] 1 TAB PO SCH (10:00)
[2018-02-16] MEDS: HYDROCHLOROTHIAZIDE 25 MG TABLET PO SCH (10:31)
[2018-02-16] MEDS: LISINOPRIL 10 MG TABLET PO SCH (10:32)
[2018-02-16] MEDS: NUCYNTA 75 MG PO PRN ×2 (14:41→23:01)
[2018-02-16] MEDS: NICOTINE 14 MG/24 HR PATCH.TD24 TD SCH (21:41)
[2018-02-17] MEDS: LANSOPRAZOLE 30 MG TAB.RAP.DR PO SCH (05:33)
[2018-02-17 05:55] LABS: ABSOLUTE EOSINOPHILS # (AUTO) 0.1 10^3/uL (0.0-0.6); ABSOLUTE LYMPHOCYTES (AUTO) 2.7 10^3/uL (0.5-4.7); ABSOLUTE MONOCYTES (AUTO) 0.6 10^3/uL (0.1-1.4); ABSOLUTE NEUT (AUTO) 5.4 10^3/uL (1.7-8.2); BASOPHILS % (AUTO) 0.4 % (0-2); EOSINOPHILS % (AUTO) 1.4 % (0-6); HEMATOCRIT 38.7 % (36.0-47.0); HEMOGLOBIN 13.2 g/dL (12.0-15.5); LYMPHOCYTES % (AUTO) 30.5 % (13-45); MEAN CORPUSCULAR HEMOGLOBIN 31.9 pg (27.0-33.4); MEAN CORPUSCULAR HGB CONC 34.2 g/dL (32.0-36.0); MEAN CORPUSCULAR VOLUME 93 fl (80-97); MONOCYTES % (AUTO) 6.8 % (3-13); PLATELET COUNT 297 10^3/uL (150-450); RED BLOOD COUNT 4.14 10^6/uL (3.72-5.28); RED CELL DISTRIBUTION WIDTH 13.5 % (11.5-14.0); SEGMENTED NEUTROPHILS % (AUTO) 60.9 % (42-78); TOTAL CELLS COUNTED % (AUTO) 100 %; WHITE BLOOD COUNT 8.9 10^3/uL (4.0-10.5)
[2018-02-17 06:18] LABS: ANION GAP 12 (5-19); BLOOD UREA NITROGEN 18 mg/dL (7-20); CARBON DIOXIDE 28 mmol/L (22-30); CHLORIDE 104 mmol/L (98-107); GLUCOSE 113 mg/dL (75-110); POTASSIUM 4.7 mmol/L (3.6-5.0); SODIUM 143.6 mmol/L (137-145)
[2018-02-17] MEDS: NUCYNTA 75 MG PO PRN ×3 (07:41→23:51)
[2018-02-17] MEDS: ENOXAPARIN SODIUM INJ 150 MG/1 ML DISP.SYRIN SUBCUT SCH ×2 (10:28→22:55)
[2018-02-17] MEDS: LISINOPRIL 10 MG TABLET PO SCH (10:29)
[2018-02-17] MEDS: HYDROCHLOROTHIAZIDE 25 MG TABLET PO SCH (10:29)
[2018-02-17] MEDS: LORAZEPAM 0.5 MG TABLET PO PRN ×2 (12:26→20:14)
--- NOTE | 2018-02-17 13:34 | PDOC PROGRESS REPORT ---
Subjective Progress Note for:: 02/17/18 Subjective:: This is a 47 years old female patient admitted yesterday after she presented with chief complaint of shortness of breath and palpitations and mild chest pain. Patient CTA shows saddle pulmonary embolism has been started on Lovenox 134 mg subcu twice a day. This morning I seen patient sitting up in. She is awake alert oriented she is not in pain or distress. I will switch her to Eliquis tomorrow. Reason For Visit: SADDLE PE Physical Exam Vital Signs: Temp Pulse Resp BP Pulse Ox 97.6 F 101 H 16 116/75 98 02/17/18 11:33 02/17/18 11:33 02/17/18 11:33 02/17/18 11:33 02/17/18 11:33 Intake & Output 02/16/18 02/17/18 02/18/18 06:59 06:59 06:59 Intake Total 672 650 Balance 672 650 Weight 136.1 kg General appearance: PRESENT: no acute distress, well-developed, well-nourished Head exam: PRESENT: atraumatic, normocephalic Eye exam: PRESENT: conjunctiva pink, EOMI, PERRLA. ABSENT: scleral icterus Ear exam: PRESENT: normal external ear exam Mouth exam: PRESENT: moist, tongue midline Neck exam: ABSENT: carotid bruit, JVD, lymphadenopathy, thyromegaly Respiratory exam: PRESENT: clear to auscultation kimberly. ABSENT: rales, rhonchi, wheezes Cardiovascular exam: PRESENT: RRR. ABSENT: diastolic murmur, rubs, systolic murmur Pulses: PRESENT: normal dorsalis pedis pul Vascular exam: PRESENT: normal capillary refill GI/Abdominal exam: PRESENT: normal bowel sounds, soft. ABSENT: distended, guarding, mass, organolmegaly, rebound, tenderness Rectal exam: PRESENT: deferred Extremities exam: PRESENT: full ROM. ABSENT: calf tenderness, clubbing, pedal edema Neurological exam: PRESENT: alert, awake, oriented to person, oriented to place , oriented to time, oriented to situation, CN II-XII grossly intact. ABSENT: motor sensory deficit Psychiatric exam: PRESENT: appropriate affect, normal mood. ABSENT: homicidal ideation, suicidal ideation Skin exam: PRESENT: dry, intact, warm. ABSENT: cyanosis, rash Results Laboratory Results: 02/17/18 05:21 02/17/18 05:21 02/17/18 02/17/18 05:21 05:21 WBC 8.9 RBC 4.14 Hgb 13.2 Hct 38.7 MCV 93 MCH 31.9 MCHC 34.2 RDW 13.5 Plt Count 297 Seg Neutrophils % 60.9 Lymphocytes % 30.5 Monocytes % 6.8 Eosinophils % 1.4 Basophils % 0.4 Absolute Neutrophils 5.4 Absolute Lymphocytes 2.7 Absolute Monocytes 0.6 Absolute Eosinophils 0.1 Absolute Basophils 0.0 Sodium 143.6 Potassium 4.7 Chloride 104 Carbon Dioxide 28 Anion Gap 12 BUN 18 Creatinine 0.81 Est GFR ( Amer) > 60 Est GFR (Non-Af Amer) > 60 Glucose 113 H Calcium 10.0 Impressions: Chest X-Ray 02/16/18 04:02 IMPRESSION: No acute cardiopulmonary findings. Assessment & Plan - Diagnosis (1) Acute pulmonary embolism Qualifiers: Pulmonary embolism type: saddle Is this a current diagnosis for this admission?: Yes Plan: Continue Lovenox. I will switch her to Eliquis tomorrow (2) Hypertension Qualifiers: Hypertension type: essential hypertension Qualified Code(s): I10 - Essential (primary) hypertension Is this a current diagnosis for this admission?: Yes Plan: Continue lisinopril (3) Depression Is this a current diagnosis for this admission?: Yes Plan: Continue duloxetine (4) Type 2 diabetes mellitus Is this a current diagnosis for this admission?: Yes Plan: Continue metformin 500 mg twice daily and sliding scale. (5) Morbid obesity Is this a current diagnosis for this admission?: Yes Plan: Lifestyle modification advised.
[2018-02-17] MEDS: NICOTINE 14 MG/24 HR PATCH.TD24 TD SCH (22:54)
[2018-02-18] MEDS: LANSOPRAZOLE 30 MG TAB.RAP.DR PO SCH (05:13)
[2018-02-18 07:02] LABS: ABSOLUTE EOSINOPHILS # (AUTO) 0.1 10^3/uL (0.0-0.6); ABSOLUTE LYMPHOCYTES (AUTO) 2.2 10^3/uL (0.5-4.7); ABSOLUTE MONOCYTES (AUTO) 0.6 10^3/uL (0.1-1.4); BASOPHILS % (AUTO) 0.3 % (0-2); EOSINOPHILS % (AUTO) 0.9 % (0-6); HEMATOCRIT 37.1 % (36.0-47.0); HEMOGLOBIN 12.8 g/dL (12.0-15.5); LYMPHOCYTES % (AUTO) 24.8 % (13-45); MEAN CORPUSCULAR HEMOGLOBIN 31.8 pg (27.0-33.4); MEAN CORPUSCULAR HGB CONC 34.4 g/dL (32.0-36.0); MEAN CORPUSCULAR VOLUME 92 fl (80-97); MONOCYTES % (AUTO) 7.1 % (3-13); PLATELET COUNT 271 10^3/uL (150-450); RED BLOOD COUNT 4.02 10^6/uL (3.72-5.28); RED CELL DISTRIBUTION WIDTH 13.7 % (11.5-14.0); SEGMENTED NEUTROPHILS % (AUTO) 66.9 % (42-78); TOTAL CELLS COUNTED % (AUTO) 100 %; WHITE BLOOD COUNT 8.9 10^3/uL (4.0-10.5)
[2018-02-18 07:25] LABS: BLOOD UREA NITROGEN 22 mg/dL (7-20); CALCIUM 9.5 mg/dL (8.4-10.2); CARBON DIOXIDE 24 mmol/L (22-30); GLUCOSE 121 mg/dL (75-110); POTASSIUM 4.6 mmol/L (3.6-5.0); SODIUM 142.5 mmol/L (137-145)
[2018-02-18 07:27] LABS: ANION GAP 14 (5-19); CHLORIDE 105 mmol/L (98-107)
[2018-02-18] MEDS: NUCYNTA 75 MG PO PRN (08:24)
[2018-02-18] MEDS: METFORMIN HCL 500 MG TABLET PO SCH (08:32)
[2018-02-18 08:51] VITALS: BP 108/78
--- NOTE | 2018-02-18 09:44 | PDOC DISCHARGE SUMMARY ---
General - Admit/Disc Date/PCP Admission Date/Primary Care Provider: 02/16/18 07:28 Discharge Date: 02/18/18 - Discharge Diagnosis (1) Acute pulmonary embolism Is this a current diagnosis for this admission?: Yes (2) Hypertension Is this a current diagnosis for this admission?: Yes (3) Depression Is this a current diagnosis for this admission?: Yes (4) Type 2 diabetes mellitus Is this a current diagnosis for this admission?: Yes (5) Morbid obesity Is this a current diagnosis for this admission?: Yes - Additional Information Resuscitation Status: Full Code Prescriptions: Apixaban [Eliquis 5 mg Tablet] 5 mg PO BID #60 tablet Apixaban [Eliquis 5 mg Tablet] 10 mg PO DAILY #14 tablet Home Medications: Lisinopril/Hydrochlorothiazide [Lisinopril-Hctz 20-25 mg Tab] 1 tab PO DAILY Metformin HCl [Glucophage] 500 mg PO ACBRKFST 01/30/18 Tapentadol HCl [Nucynta] 75 mg PO Q8HP PRN 01/30/18 Tapentadol HCl [Nucynta ER] 250 mg PO Q12 02/16/18 Apixaban [Eliquis 5 mg Tablet] 5 mg PO BID #60 tablet 02/18/18 Apixaban [Eliquis 5 mg Tablet] 10 mg PO DAILY #14 tablet 02/18/18 History of Present Illness History of Present Illness: MARK LING is a 47 year old female patient with past medical history of hypertension, diabetes mellitus, depression, and obesity presents with chief complaint of shortness of breath, palpitation and dizziness of 1 day duration. Patient endorses mild substernal chest pain. Her initial blood work is unremarkable except for elevated d-dimer. CTA of the chest shows done and it was positive for pulmonary embolus. There is a saddle embolus of the right middle lobe are pulmonary arteries. Of note patient discharged from this hospital on February 03 after she was treated for acute renal failure and intentional drug overdose. Patient denies any chills, fever, cough, diaphoresis , nausea, vomiting, abdominal pain, diarrhea or urinary complaints. She has dizziness but she denies any blurring of vision, seizure activity, headache or syncope. Hospital Course Hospital Course: This is a 47 years old female patient admitted yesterday after she presented with chief complaint of shortness of breath and palpitations and mild chest pain. Patient CTA shows saddle pulmonary embolism has been started on Lovenox 134 mg subcu twice a day. This morning I seen patient sitting up in bed and playing with her cell phone. She is awake alert oriented she is not in pain or distress. I switched her to Eliquis tomorrow and DC Lovenox. Her vital signs are stable and her blood works are also within normal limits. Patient is stable enough to be discharged today and follow-up with her primary care physician. I discharge her with Eliquis 10 mg p.o. daily for the first 7 days then 5 mg twice daily. Physical Exam Vital Signs: Temp Pulse Resp BP Pulse Ox 97.6 F 100 18 108/78 97 02/18/18 08:46 02/18/18 08:46 02/18/18 08:46 02/18/18 08:46 02/18/18 08:46 Intake & Output 02/17/18 02/18/18 02/19/18 06:59 06:59 06:59 Intake Total 672 2083 Balance 672 2083 Weight 136.1 kg 136.7 kg General appearance: PRESENT: no acute distress, well-developed, well-nourished Head exam: PRESENT: atraumatic, normocephalic Eye exam: PRESENT: conjunctiva pink, EOMI, PERRLA. ABSENT: scleral icterus Ear exam: PRESENT: normal external ear exam Mouth exam: PRESENT: moist, tongue midline Neck exam: ABSENT: carotid bruit, JVD, lymphadenopathy, thyromegaly Respiratory exam: PRESENT: clear to auscultation kimberly. ABSENT: rales, rhonchi, wheezes Cardiovascular exam: PRESENT: RRR. ABSENT: diastolic murmur, rubs, systolic murmur Pulses: PRESENT: normal dorsalis pedis pul Vascular exam: PRESENT: normal capillary refill GI/Abdominal exam: PRESENT: normal bowel sounds, soft. ABSENT: distended, guarding, mass, organolmegaly, rebound, tenderness Rectal exam: PRESENT: deferred Extremities exam: PRESENT: full ROM. ABSENT: calf tenderness, clubbing, pedal edema Neurological exam: PRESENT: alert, awake, oriented to person, oriented to place , oriented to time, oriented to situation, CN II-XII grossly intact. ABSENT: motor sensory deficit Psychiatric exam: PRESENT: appropriate affect, normal mood. ABSENT: homicidal ideation, suicidal ideation Skin exam: PRESENT: dry, intact, warm. ABSENT: cyanosis, rash Results Laboratory Results: 02/18/18 06:22 02/18/18 06:22 02/18/18 02/18/18 06:22 06:22 WBC 8.9 RBC 4.02 Hgb 12.8 Hct 37.1 MCV 92 MCH 31.8 MCHC 34.4 RDW 13.7 Plt Count 271 Seg Neutrophils % 66.9 Lymphocytes % 24.8 Monocytes % 7.1 Eosinophils % 0.9 Basophils % 0.3 Absolute Neutrophils 6.0 Absolute Lymphocytes 2.2 Absolute Monocytes 0.6 Absolute Eosinophils 0.1 Absolute Basophils 0.0 Sodium 142.5 Potassium 4.6 Chloride 105 Carbon Dioxide 24 Anion Gap 14 BUN 22 H Creatinine 0.74 Est GFR ( Amer) > 60 Est GFR (Non-Af Amer) > 60 Glucose 121 H Calcium 9.5 Impressions: Chest X-Ray 02/16/18 04:02 IMPRESSION: No acute cardiopulmonary findings. Qualifiers - * PATIENT BEING DISCHARGED WITH ANY OF THE FOLLOWING DIAGNOSIS: No
[2018-02-18] MEDS: HYDROCHLOROTHIAZIDE 25 MG TABLET PO SCH (10:24)
[2018-02-18] MEDS: LISINOPRIL 10 MG TABLET PO SCH (10:25)
== END 2018-02-18 11:34 | disposition home or self-care (01) | DRG 176 ==
LOC: ER 03:11 → EH 07:28 → 3S 10:49
PROVIDERS: ADMIT Internal Medicine; ATTEND Internal Medicine
DX: I26.92 Saddle embolus of pulmonary artery without acute cor pulmonale (principal); Z68.42 Body mass index [BMI] 45.0-49.9, adult; I10 Essential (primary) hypertension; R73.03 Prediabetes; F32.9 Major depressive disorder, single episode, unspecified; E66.9 Obesity, unspecified; F90.9 Attention-deficit hyperactivity disorder, unspecified type; F17.210 Nicotine dependence, cigarettes, uncomplicated; Z79.84 Long term (current) use of oral hypoglycemic drugs; Z79.899 Other long term (current) drug therapy; Z79.01 Long term (current) use of anticoagulants; Z91.5 Personal history of self-harm; Z90.49 Acquired absence of other specified parts of digestive tract; Z83.3 Family history of diabetes mellitus; Z82.49 Family history of ischemic heart disease and other diseases of the circulatory system; Z88.0 Allergy status to penicillin; Z88.6 Allergy status to analgesic agent
CPT/HCPCS: 36415; 71045; 71275; 80048; 80053; 81001; 82550; 82962; 84443; 84484; 85025; 85379; 85610; 85730; 87086; 87088; 87186; 93005; 93010; 96374; 99285; J2060; J3490

== ENCOUNTER 2018-11-23 01:39 | Emergency (ER) | payer OTHER ==
[2018-11-23 02:58] LABS: ABSOLUTE BASOPHILS # (AUTO) 0.1 10^3/uL (0.0-0.2); ABSOLUTE EOSINOPHILS # (AUTO) 0.1 10^3/uL (0.0-0.6); ABSOLUTE LYMPHOCYTES (AUTO) 2.5 10^3/uL (0.5-4.7); ABSOLUTE MONOCYTES (AUTO) 0.7 10^3/uL (0.1-1.4); ABSOLUTE NEUT (AUTO) 5.2 10^3/uL (1.7-8.2); BASOPHILS % (AUTO) 1.2 % (0-2); EOSINOPHILS % (AUTO) 1.3 % (0-6); HEMATOCRIT 41.5 % (36.0-47.0); HEMOGLOBIN 13.9 g/dL (12.0-15.5); LYMPHOCYTES % (AUTO) 29.1 % (13-45); MEAN CORPUSCULAR HEMOGLOBIN 31.6 pg (27.0-33.4); MEAN CORPUSCULAR HGB CONC 33.5 g/dL (32.0-36.0); MEAN CORPUSCULAR VOLUME 94 fl (80-97); MONOCYTES % (AUTO) 8.1 % (3-13); PLATELET COUNT 262 10^3/uL (150-450); RED BLOOD COUNT 4.41 10^6/uL (3.72-5.28); RED CELL DISTRIBUTION WIDTH 14.4 % (11.5-14.0); SEGMENTED NEUTROPHILS % (AUTO) 60.3 % (42-78); TOTAL CELLS COUNTED % (AUTO) 100 %; WHITE BLOOD COUNT 8.6 10^3/uL (4.0-10.5)
[2018-11-23 03:15] LABS: ANION GAP 10 (5-19); BLOOD UREA NITROGEN 22 mg/dL (7-20); CALCIUM 9.3 mg/dL (8.4-10.2); CARBON DIOXIDE 25 mmol/L (22-30); CHLORIDE 103 mmol/L (98-107); GLUCOSE 115 mg/dL (75-110); POTASSIUM 4.5 mmol/L (3.6-5.0); SODIUM 137.8 mmol/L (137-145)
--- NOTE | 2018-11-23 03:24 | ER Document Report ---
ED General - General Chief Complaint: Irregular Pulse Stated Complaint: CHEST PAIN Time Seen by Provider: 11/23/18 02:32 Notes: Patient is a 48-year-old female that comes to the emergency department for chief complaint of episodes of palpitations and sensation of shortness of breath that have been happening for the past 2-3 hours or so. She denies dizziness, chest pain, abdominal pain, nausea/vomiting. She denies to smoking, she does have a history of pulmonary embolism and is on Eliquis. She reports compliance with Eliquis. Past medical history also includes hypertension, chronic pain, type 2 diabetes, morbid obesity, depression. at bedside. TRAVEL OUTSIDE OF THE [place] IN LAST 30 DAYS: No - Related Data Allergies/Adverse Reactions: acetaminophen [From NyQuil] Allergy (Verified 02/16/18 04:26) heart races dextromethorphan HBr [From NyQuil] Allergy (Verified 02/16/18 04:26) heart races doxylamine [From NyQuil] Allergy (Verified 02/16/18 04:26) heart races morphine Allergy (Verified 02/16/18 04:26) Penicillins Allergy (Verified 02/16/18 04:26) Hives pseudoephedrine HCl [From NyQuil] Allergy (Verified 02/16/18 04:26) heart races Past Medical History - General Information source: Patient - Social History Smoking Status: Current Every Day Smoker Smoking Education Provided: Yes - <3 min Frequency of alcohol use: None Drug Abuse: None Lives with: Family Family History: DM, Hypertension - Past Medical History Cardiac Medical History: Reports: Hx Hypertension Endocrine Medical History: Reports: Hx Diabetes Mellitus Type 2 - borderline Renal/ Medical History: Reports: Hx Ovarian Cysts - pcos. Denies: Hx Peritoneal Dialysis Musculoskeletal Medical History: Reports Hx Musculoskeletal Deformity - bursitits Psychiatric Medical History: Reports: Hx Anxiety, Hx Attention Deficit Hyperactivity Disorder, Hx Depression Past Surgical History: Reports: Hx Appendectomy, Hx Gynecologic Surgery - right fallopian tube, Hx Orthopedic Surgery - left hip, Hx Tonsillectomy - and adenoids - Immunizations Immunizations up to date: Yes Hx Diphtheria, Pertussis, Tetanus Vaccination: Yes Review of Systems - Review of Systems Constitutional: No symptoms reported EENT: No symptoms reported Cardiovascular: See HPI Respiratory: See HPI Gastrointestinal: No symptoms reported Genitourinary: No symptoms reported Female Genitourinary: No symptoms reported Musculoskeletal: No symptoms reported Skin: No symptoms reported Hematologic/Lymphatic: No symptoms reported Neurological/Psychological: See HPI Physical Exam - Vital signs Vitals: Temp Pulse Resp BP Pulse Ox 98.4 F 100 17 145/97 H 98 11/23/18 01:50 11/23/18 01:50 11/23/18 01:50 11/23/18 01:50 11/23/18 01:50 - Notes Notes: GENERAL: Alert, interacts well. No acute distress. HEAD: Normocephalic, atraumatic. EYES: Pupils equal, round, and reactive to light. Extraocular movements intact. ENT: Oral mucosa moist, tongue midline. Oropharynx unremarkable. Airway patent. NECK: Full range of motion. Supple. Trachea midline. LUNGS: Clear to auscultation bilaterally, no wheezes, rales, or rhonchi. No respiratory distress. HEART: Regular rate and rhythm. No murmur ABDOMEN: Soft, non-tender. Non-distended. Bowel sounds present in all 4 quadrants. GENITOURINARY: Deferred EXTREMITIES: Moves all 4 extremities spontaneously. No edema, normal radial and dorsalis pedis pulses bilaterally. No cyanosis. BACK: no cervical, thoracic, lumbar midline tenderness. No saddle anesthesia, normal distal neurovascular exam. NEUROLOGICAL: Alert and oriented x3. Normal speech. . PSYCH: Speaks rapidly, anxious behavior SKIN: Warm, dry, normal turgor. No rashes or lesions noted. Course - Re-evaluation Re-evalutation: Patient is tearful and anxious. Blood pressure is normal, heart rate is borderline fast. I have seen her previously when she had a blood clot but she reports compliance with Eliquis. Patient specifically requests a d-dimer. This was performed. This was negative. Chest x-ray unremarkable. EKG sinus rhythm with no T wave inversions or ST segment changes in consecutive leads. CBC, chemistry unremarkable except for mildly elevated BUN compared to creatinine, suspect some degree of dehydration. Patient was mildly tachycardic initially, given IV fluids, on my reevaluation at bedside tachycardia has resolved. I do not see any concerning findings on monitoring during her stay including no noted arrhythmias. Troponin is negative. Patient has not had any pain symptoms and is asymptomatic on my evaluation. Discussed work-up. Patient admits to drinking constant caffeinated drinks without hydrating ever. She also smokes. Suspect this is the cause of her more frequent palpitations. Recommended lifestyle modifications first, follow-up with cardiology. Patient already has a primary care and then cardiology follow- up established. Patient states understanding and agreement with this plan. Discussed return precautions. Patient stable at time of discharge. - Vital Signs Vital signs: Temp Pulse Resp BP Pulse Ox 98.6 F 100 20 118/72 96 11/23/18 05:01 11/23/18 01:50 11/23/18 05:01 11/23/18 05:01 11/23/18 05:01 - Laboratory Result Diagrams: 11/23/18 02:45 11/23/18 02:45 Laboratory results interpreted by me: 11/23/18 11/23/18 02:45 02:45 RDW 14.4 H BUN 22 H Glucose 115 H Discharge - Discharge Clinical Impression: Palpitations Condition: Stable Disposition: HOME, SELF-CARE Additional Instructions: Your work-up and evaluation at this time did not show any concerning a normality. Recommendation is to reduce caffeine and stop smoking to reduce extra beats/palpitations. Follow-up with primary care for additional evaluation and management. Return if you worsen including chest pain, passing out, or any other concerning or worsening symptoms. Forms: Smoking Cessation Education
[2018-11-23 03:32] LABS: FREE T4 (FREE THYROXINE) 1.08 ng/dL (0.78-2.19)
--- NOTE | 2018-11-23 03:32 | RADIOLOGY REPORT (SQ) ---
EXAM DESCRIPTION: XR CHEST 1 VIEW COMPLETED DATE/TME: 11/23/2018 02:53 CLINICAL HISTORY: 48 years, Female, shortness of breath COMPARISON: None. NUMBER OF VIEWS: One view TECHNIQUE: AP view of the chest LIMITATIONS: None. FINDINGS: The lungs are clear. The heart is at the upper limit of normal in size. There is no pneumothorax or pleural effusion. There is no acute fracture IMPRESSION: No acute cardiopulmonary abnormality copyright 2010 [employer]- All Rights Reserved
[2018-11-23] MEDS ORDERED: NORMAL SALINE 1000 ML 1,000 ML IV ONE (03:41)
[2018-11-23 03:46] LABS: THYROID STIMULATING HORMONE 1.65 uIU/mL (0.47-4.68)
[2018-11-23 05:05] VITALS: BP 118/72
--- NOTE | 2018-11-23 17:44 | EKG REPORT ---
SEVERITY:- OTHERWISE NORMAL ECG - SINUS TACHYCARDIA : Confirmed by: Gwen Rodriguez MD 23-Nov-2018 17:43:23
== END 2018-11-23 05:05 | disposition home or self-care (01) ==
LOC: ER 01:39
DX: R07.9 Chest pain, unspecified (principal); R00.2 Palpitations; Z88.6 Allergy status to analgesic agent; Z88.0 Allergy status to penicillin; Z79.02 Long term (current) use of antithrombotics/antiplatelets
CPT/HCPCS: 93005; 99285; 36415; 84439; 84443; 85025; 80048; 84484; 85379; 71045; 93010; J7030

== ENCOUNTER → 2020-02-27 | Outpatient (CLI) | payer OTHER ==
--- NOTE | 2020-02-28 08:46 | WOMENS IMAGING REPORT ---
EXAM DESCRIPTION: BILAT SCREENING MAMMO W/CAD IMAGES COMPLETED DATE/TIME: 02/27/2020 2:16 pm REASON FOR STUDY: Z12.31 ENCOUNTER FOR SCREENING MAMMOGRAM FOR MALIGNANT NEOPLASM OF BREAST Z12.31 ENCNTR SCREEN MAMMOGRAM FOR MALIGNANT NEOPLASM OF DANIELE COMPARISON: 2013 EXAM PARAMETERS: Standard craniocaudal and mediolateral oblique views of each breast recorded using digital acquisition. Read with the assistance of CAD. .[facility] - [employer] Version 9.2 LIMITATIONS: None. FINDINGS: No suspicious masses, suspicious calcifications or architectural distortion. No areas of c oncern. IMPRESSION: NEGATIVE MAMMOGRAM. BIRADS 1 BREAST DENSITY: c. The breasts are heterogeneously dense, which may obscure small masses. BIRAD: ASSESSMENT: 1 NEGATIVE RECOMMENDATION: ROUTINE SCREENING COMMENT: The patient has been notified of the results by letter per MQSA requirements. Additional no tification policies are in place for contacting patient with suspicious or incomplete findings. Quality ID #[id number]: The [employer] recommends an annual screening mammogram for women aged 40 years or over. This facility utilizes a reminder system to ensure that all patients receive reminder letters, and/or direct phone calls for appointments. This includes reminders for routine scr eening mammograms, diagnostic mammograms, or other Breast Imaging Interventions when appropriate. Th is patient will be placed in the appropriate reminder system. TECHNICAL DOCUMENTATION: FINDING NUMBER: (1) ASSESSMENT: (1) JOB ID: [id number] 2010 [employer]- All Rights Reserved Reading location - IP/workstation name: [email or web address]
== END ==
LOC: WI 12:55
PROVIDERS: ATTEND Physician Assistant
DX: Z12.31 Encounter for screening mammogram for malignant neoplasm of breast (principal)
CPT/HCPCS: 77067